=== PATIENT | female | born 1940 | race Caucasian/White ===

== ENCOUNTER 2020-02-11 12:17 | Outpatient (REF) | payer MEDICARE, SELFPAY ==
[2020-02-11 12:53] LABS: COVID-19 Test Negative (Negative)
== END 2020-02-11 12:18 | disposition home or self-care (01) ==
LOC: HO.LAB 12:17
PROVIDERS: Visit Provider Internal Medicine
DX: Z20.828 Contact with and (suspected) exposure to other viral communicable diseases (principal)
CPT/HCPCS: 87635

== ENCOUNTER 2020-11-09 06:44 | Outpatient (REF) | payer MEDICARE, SELFPAY ==
[2020-11-09 07:32] LABS: Hematocrit 37.5 % (37-47); Hemoglobin 12.3 g/dl (12.0-16.0); Mean Corpuscular HGB Conc 32.8 g/dl (31.0-35.0); Mean Corpuscular Hemoglobin 30.8 pg (27.0-33.0); Mean Corpuscular Volume 93.8 fL (80-98); Mean Platelet Volume 10.8 fL (9.4-12.3); Platelet Count 246 X10*3/uL (160-400); Red Cell Distribution Width 12.7 % (11.0-16.0)
[2020-11-09 07:40] LABS: Estimated Average Glucose 108 mg/dL; Hemoglobin A1c % 5.4 %
[2020-11-09 07:59] LABS: Alanine Aminotransferase 16 U/L (0-31); Albumin Level 4.3 g/dL (3.5-5.0); Alkaline Phosphatase 53 U/L (39-117); Anion Gap 14 (12-20); Aspartate Amino Transferase 18 U/L (5-31); Bilirubin Total 0.6 mg/dL (0.0-1.0); Blood Urea Nitrogen 13 mg/dL (9-16); Calcium 9.9 mg/dL (8.4-10.2); Carbon Dioxide 24 mmol/L (22-29); Chloride 108 mmol/L (96-108); Cholesterol 175 mg/dL; Estimated Glomerular Filt Rate > 60; Glucose Fasting 100 mg/dL (60-99); HDL Cholesterol 41 mg/dL; LDL Cholesterol Calculated 94 mg/dl; Sodium 142 mmol/L (135-145); Total Protein 7.3 g/dL (6.5-8.0); Triglycerides 204 mg/dL
[2020-11-09 08:21] LABS: TSH reflex Free T4 4.74 uIU/mL (0.32-4.0)
[2020-11-09 09:11] LABS: Free T4 (Free Thyroxine) 0.83 ng/dL (0.71-1.85)
== END 2020-11-09 06:45 | disposition home or self-care (01) ==
LOC: HO.LAB 06:44
PROVIDERS: Visit Provider Physician Assistant
DX: I10 Essential (primary) hypertension (principal); E78.2 Mixed hyperlipidemia
CPT/HCPCS: 36415; 80053; 80061; 83036; 84439; 84443; 85027

== ENCOUNTER 2021-08-11 10:30 | Emergency (ER) | payer MEDICARE, SELFPAY ==
--- NOTE | ~2021-08-11 | CT_ITS ---
EXAMINATION: CT BRAIN. CHEST. CLINICAL INFORMATION: Dizziness. COMPARISON: None TECHNIQUE: 5 mm thin axial and reformatted 2 mm thin sagittal coronal images of brain were obtained. DLP [id number]. Chest one view. FINDINGS: CHEST: The lungs are well-expanded and clear of acute process. Heart size and pulmonary vascularity is normal. No gross bony abnormality seen. BRAIN: There is no acute intra-axial, extra-axial bleed, masses or midline shift. There is no acute infarction evolution. The lateral ventricles are symmetrical in size and configuration without enlargement. The lewis to white matter differentiation is maintained normal. Bone windows reveal no calvarial abnormality. There is no scalp soft tissue abnormality. Bilateral paranasal sinuses and mastoid air cells are well-aerated. CT/CT head/brain wo con IMPRESSION: Unremarkable chest exam. No acute intracranial process seen.
[2021-08-11 10:38] VITALS: BP 139/64; PULSE 71; RESP 20; TEMP 36.7; O2SAT 99; BMI 26.8
--- NOTE | 2021-08-11 10:43 | ECG_ITS ---
Test Reason : dizziness Blood Pressure : / mmHG Vent. Rate : 065 BPM Atrial Rate : 065 BPM P-R Int : 170 ms QRS Dur : 078 ms QT Int : 434 ms P-R-T Axes : 055 -07 -09 degrees QTc Int : 451 ms Normal sinus rhythm Minimal voltage criteria for LVH, may be normal variant ( R in aVL ) Borderline ECG No previous ECGs available Referred By: Taco Moura Electronically Signed By:James Gasca
[2021-08-11 10:52] VITALS: BP 142/82; PULSE 68; RESP 16; O2SAT 97
[2021-08-11 11:26] LABS: MANUAL DIFF FLAG NO
[2021-08-11 11:30] LABS: Basophils Absolute Auto 0.1 X10*3/uL (0.0-0.2); Basophils Percent Auto 1.2 % (0-2); Eosinophils Absolute Auto 0.2 X10*3/uL (0.0-0.4); Eosinophils Percent Auto 2.2 % (0-4); Hematocrit 37.5 % (37.0-47.0); Hemoglobin 12.4 g/dl (12.0-16.0); Imm Gran Abs Auto 0.02 X10*3/uL (0.00-0.03); Imm Gran Pct Auto 0.3 % (0.0-0.4); Lymphocytes Absolute Auto 1.9 X10*3/uL (1.2-4.9); Mean Corpuscular HGB Conc 33.1 g/dl (31.0-35.0); Mean Corpuscular Hemoglobin 30.7 pg (27.0-33.0); Mean Corpuscular Volume 92.8 fL (80.0-98.0); Mean Platelet Volume 10.6 fL (9.4-12.3); Monocytes Absolute Auto 0.7 X10*3/uL (0.1-1.2); Monocytes Percent Auto 8.5 % (2-11); Neutrophils Percent Auto 63.8 % (45-73); Platelet Count 246 X10*3/uL (160-400); Red Blood Count 4.04 X10*6/uL (4.20-5.50); Red Cell Distribution Width 12.6 % (11.0-16.0); White Blood Count 7.8 X10*3/uL (4.8-10.8)
--- NOTE | 2021-08-11 11:45 | ED_ITS ---
HPI - Dizziness General Chief Complaint: Dizziness Stated Complaint: DIZZY SPELLS THIS AM Time Seen by Provider: 08/11/21 10:43 Source: patient and EMS Mode of arrival: EMS History of Present Illness HPI Narrative: 81-year-old female with a past medical history of osteopenia, HLD, HTN presenting to the ED complaining of intermittent dizzy episodes x months, worsening this morning after bending down to do laundry. Dizziness described as feeling off balance lasting a few seconds, worse with position changes/head movement. Also reports increased sinus pressure/rhinorrhea > R ear. Denies associated headache, vision changes, CP/SOB, abdominal pain, nausea/vomiting, weakness, numbness/tingling, recent illness. Denies taking anticoagulation. Denies fall/head trauma MD elicited complaint: dizziness and lightheadedness Related Data Home Medications Medication Instructions Recorded Confirmed [id number] 18 1 tab PO DAILY tab 07/13/20 05/17/21 mg-FA 400 mcg-vit K 25 mcg tablet (One-A-Day Women's Complete) Previous Rx's Medication Instructions Recorded calcium carbonate 500 mg calcium 500 mg PO DAILY 90 Days #90 tab 11/15/20 (1,250 mg) tablet (Oyster Shell Calcium) atenolol 25 mg tablet 50 mg PO DAILY #180 tab 05/26/21 simvastatin 20 mg tablet 20 mg PO BEDTIME 90 Days #90 tab 06/06/21 amlodipine 2.5 mg tablet 2.5 mg PO DAILY 90 Days #90 tab 08/03/21 lisinopril 40 mg tablet 40 mg PO DAILY 90 Days #90 tab 08/03/21 amoxicillin 875 mg-potassium 1 tab PO BID 7 Days #14 tab 08/11/21 clavulanate 125 mg tablet fluconazole 150 mg tablet 150 mg PO Q3D #2 tab 08/11/21 (Diflucan) fluticasone propionate 50 2 spray INTRANASAL DAILY #16 g 08/11/21 mcg/actuation nasal spray,suspension (Flonase Allergy Relief) meclizine 25 mg tablet 25 mg PO TID PRN #14 tab 08/11/21 Allergies Allergy/AdvReac Type Severity Reaction Status Date / Time sulfacetamide Allergy Mild Hives Verified 05/17/21 08:26 Sulfacetamide Sod-Pred Allergy Intermediate Unknown Uncoded 05/17/21 08:26 Review of Systems Review of Systems: Constitutional: No Fever, No Chills, No Fatigue, No Malaise ENT/Mouth: No Ear Pain, + Nasal Congestion, No sore throat, + Sinus pressure, No Swallowing Difficulty Eyes: No Eye Pain, No Swelling, No Redness, No Vision Changes Cardiovascular: No Chest Pain, No SOB, No Dyspnea on Exertion, No Orthopnea, No Edema, No Palpitations Respiratory: No Cough, No Sputum, No Wheezing, No Smoke Exposure, No Dyspnea Gastrointestinal: No Nausea, No Vomiting, No Diarrhea, No Constipation, No Abdominal pain Genitourinary: No Dysuria, No Urinary Frequency, No Hematuria, No Urgency, No Flank Pain Musculoskeletal: No joint pain, No Myalgias, No Joint Swelling Skin: No Skin Lesions, No rash Neuro: No Weakness, No Numbness, No Paresthesias, No Loss of Consciousness, + Dizziness, No Headache Yes all other systems are reviewed and are negative Neurologic: Denies Abnormal speech present [facility] Past Medical History Attestation statement: The following information was validated with the patient. Surgical History History of cholecystectomy Family History Family History Mother No problems noted. Father No problems noted. Social History Social History Housing: House Alcohol intake: current Alcohol intake frequency: 0-2 drinks per day Patient Tobacco Use Status: Never used Tobacco Tobacco use type: Cigarette e-Cigarette/Vaping Use: Never Used Second Hand Smoke Exposure: No Advance Directives: No Advance Directives Information Provided: No Current occupational status: retired Physical Exam Vital Signs: Vital Signs: Last Vital Signs Temp 97.9 F 08/11/21 14:14 Pulse 61 08/11/21 14:14 Resp 20 08/11/21 14:14 BP 146/69 H 08/11/21 14:14 Pulse Ox 99 08/11/21 14:14 BMI result Body Mass Index 26.8 Const: General: cooperative, healthy appearing, no acute distress, well developed, alert and awake Orientation/consciousness: patient oriented x3 Limitations: no limitations HEENT: Head: Yes normal to inspection and Yes atraumatic Ears: hearing grossly normal bilaterally, TM normal on the left, mastoids normal and TM abnormal with fluid behind the TM on the right General nose exam: Normal external nose present Face and sinus: Yes normal facial exam Mouth: Normal oral and palatal mucosa present Throat: Yes posterior oropharynx normal, Yes tonsils normal and Yes uvula midline Eyes: General: appearance normal, both eyes and all related structures Sclerae: sclerae normal Corneas: corneas normal Pupils: Equal, round and reactive pupils present EOM: EOMs intact bilaterally Neck: Neck: Yes normal visual inspection and Yes no meningeal signs Resp: Effort & Inspection: normal respiratory effort and no respiratory distress Auscultation: clear to auscultation bilaterally, no rales, no rhonchi and no wheezes Cardio: Rate: regular rate Heart sounds: S1 normal heart sound present and S2 normal heart sound present GI: Inspection: Yes normal to inspection Palpation (GI): Soft to palpation, nontender and no guarding Skin: Rashes: no rashes Wounds: no wounds Neuro: General: patient oriented x3, gait normal, tone normal, moves all extremities, no meningeal signs, no focal motor deficits and CN's II-XI intact bilaterally Cranial nerves: Yes CN's II-XII intact bilaterally, Yes Equal, round and reactive pupils present, Yes Bilaterally intact EOM present, Yes Nystagmus not present and Yes Normal facial strength present Cognition (Ne uro): normal cognition Speech: No Abnormal speech present Gait exam (Neuro): Normal gait present Motor exam (neuro): 5/5 motor strength present throughout, Pronator motor function not present and no tremor noted Coordination: [id number] test normal Romberg Test: Negative Extrem: General: Yes normal to inspection and Yes no pedal edema Course Course Course Narrative: -1215--no leukocytosis. Initial troponin negative > will obtain 3 hour repeat. BNP and lipase mildly elevated -COVID-19 and influenza negative XR chest 1V & CT head/brain wo con IMPRESSION: Unremarkable chest exam. No acute intracranial process seen.? -orthostatic vital signs negative -1243--on re-evaluation patient reports symptomatic improvement. Reports increasing anxiety related to symptoms/generalized x months. Will give 0.5 mg of Ativan for both anxiolytic and dizziness -1455--repeat troponin negative. Results discussed with patient and family at bedside including worrisome signs and symptoms and strict return precautions and needed close follow-up with PCP. She verbalized understanding and feels safe for discharge home MDM - Dizziness MDM Narrative Medical decision making narrative: 81-year-old female with a past medical history of osteopenia, HLD, HTN presenting to the ED complaining of intermittent dizzy episodes times months, worsening this morning after bending down to do laundry. On exam vital signs stable, NAD/nontoxic appearing, no focal neuro deficits, ambulating with steady gait/no ataxia, lungs CTA, fluid behind right TM. Concern for BPPV vs orthostatic hypotension vs acute/chronic ear effusion causing sx vs metabolic abnormalities including dehydration vs viral illness. Lower concern for ACS/PE. Symptoms atypical for CVA/TIA Plan: EKG, labs, UA, CXR, head CT, IVF, orthostatics, re-evaluate Differential Diagnosis Differential diagnosis: Likely benign paroxysmal positional vertigo and orthostatic hypotension Medical Records Attestation: I reviewed the patient's medical records. Lab Data Attestation: I reviewed the patient's lab results. Result diagrams: 08/11/21 11:11 08/11/21 11:11 Labs: Lab Results 08/11/21 08/11/21 08/11/21 Range/Units 11:11 11:11 11:11 WBC 7.8 (4.8-10.8) X10*3/uL RBC 4.04 L (4.20-5.50) X10*6/uL Hgb 12.4 (12.0-16.0) g/dl Hct 37.5 (37.0-47.0) % MCV 92.8 (80.0-98.0) fL MCH 30.7 (27.0-33.0) pg MCHC 33.1 (31.0-35.0) g/dl RDW 12.6 (11.0-16.0) % Plt Count 246 (160-400) X10*3/uL MPV 10.6 (9.4-12.3) fL Immature Gran % (Auto) 0.3 (0.0-0.4) % Neut % (Auto) 63.8 (45-73) % Lymph % (Auto) 24.0 (20-40) % [place] % (Auto) 8.5 (2-11) % Eos % (Auto) 2.2 (0-4) % Baso % (Auto) 1.2 (0-2) % Lymph # (Auto) 1.9 (1.2-4.9) X10*3/uL [place] # (Auto) 0.7 (0.1-1.2) X10*3/uL Eos # (Auto) 0.2 (0.0-0.4) X10*3/uL Baso # (Auto) 0.1 (0.0-0.2) X10*3/uL Abs Immat Gran (auto) 0.02 (0.00-0.03) X10*3/uL Absolute Neuts (auto) 5.0 (2.0-8.3) x10*3/uL Absolute Nucleated RBC 0.000 (0.0-0.012) X10*3/uL Nucleated RBC % (auto) 0.0 (0.0-0.2) /100WBC Sodium 142 (135-145) mmol/L Potassium 4.2 (3.3-5.1) mmol/L Chloride 109 H (96-108) mmol/L Carbon Dioxide 26 (22-29) mmol/L Anion Gap 11 L (12-20) BUN 16 (9-16) mg/dL Creatinine 0.77 (0.5-1.4) mg/dL Estim Creat Clear Calc 49.2 Estimated GFR > 60 Random Glucose 114 (60-115) mg/dL Calcium 9.6 (8.4-10.2) mg/dL Magnesium 2.1 (1.6-2.6) mg/dL Total Bilirubin 0.5 (0.0-1.0) mg/dL Direct Bilirubin < 0.2 (0.0-0.5) mg/dL AST 19 (5-31) U/L ALT 17 (0-31) U/L Alkaline Phosphatase 53 (39-117) U/L Troponin I High Sens < 3.5 (<3.5-17.0) ng/L B-Natriuretic Peptide (<100) pg/mL Total Protein 7.1 (6.5-8.0) g/dL Albumin 4.1 (3.5-5.0) g/dL Lipase 85 H (8-78) U/L Urine Color Urine Appearance Urine pH (5.0-8.0) Ur Specific [place] (1.005-1.025) Urine Protein (NEG-TRACE) MG/DL Urine Glucose (UA) (NEG) MG/DL Urine Ketones (NEG) MG/DL Urine Blood (NEG) Urine Nitrite (NEG) Ur Leukocyte Esterase (NEG) Urine RBC (0) /HPF Urine WBC (0-4) /HPF Ur Squamous Epith Cells /LPF Urine Bacteria /LPF COVID-19 ([facility]) (Negative) COVID-19 Clin Com Influenza Type A (ONIEL) (Negative) Influenza Type B ([facility]IEL) (Negative) Influenza A & B Note 08/11/21 08/11/21 08/11/21 Range/Units 11:11 11:27 11:27 WBC (4.8-10.8) X10*3/uL RBC (4.20-5.50) X10*6/uL Hgb (12.0-16.0) g/dl Hct (37.0-47.0) % MCV (80.0-98.0) fL MCH (27.0-33.0) pg MCHC (31.0-35.0) g/dl RDW (11.0-16.0) % Plt Count (160-400) X10*3/uL MPV (9.4-12.3) fL Immature Gran % (Auto) (0.0-0.4) % Neut % (Auto) (45-73) % Lymph % (Auto) (20-40) % [place] % (Auto) (2-11) % Eos % (Auto) (0-4) % Baso % (Auto) (0-2) % Lymph # (Auto) (1.2-4.9) X10*3/uL [place] # (Auto) (0.1-1.2) X10*3/uL Eos # (Auto) (0.0-0.4) X10*3/uL Baso # (Auto) (0.0-0.2) X10*3/uL Abs Immat Gran (auto) (0.00-0.03) X10*3/uL Absolute Neuts (auto) (2.0-8.3) x10*3/uL Absolute Nucleated RBC (0.0-0.012) X10*3/uL Nucleated RBC % (auto) (0.0-0.2) /100WBC Sodium (135-145) mmol/L Potassium (3.3-5.1) mmol/L Chloride (96-108) mmol/L Carbon Dioxide (22-29) mmol/L Anion Gap (12-20) BUN (9-16) mg/dL Creatinine (0.5-1.4) mg/dL Estim Creat Clear Calc Estimated GFR Random Glucose (60-115) mg/dL Calcium (8.4-10.2) mg/dL Magnesium (1.6-2.6) mg/dL Total Bilirubin (0.0-1.0) mg/dL Direct Bilirubin (0.0-0.5) mg/dL AST (5-31) U/L ALT (0-31) U/L Alkaline Phosphatase (39-117) U/L Troponin I High Sens (<3.5-17.0) ng/L B-Natriuretic Peptide 127 H (<100) pg/mL Total Protein (6.5-8.0) g/dL Albumin (3.5-5.0) g/dL Lipase (8-78) U/L Urine Color Urine Appearance Urine pH (5.0-8.0) Ur Specific [place] (1.005-1.025) Urine Protein (NEG-TRACE) MG/DL Urine Glucose (UA) (NEG) MG/DL Urine Ketones (NEG) MG/DL Urine Blood (NEG) Urine Nitrite (NEG) Ur Leukocyte Esterase (NEG) Urine RBC (0) /HPF Urine WBC (0-4) /HPF Ur Squamous Epith Cells /LPF Urine Bacteria /LPF COVID-19 ([facility]) Negative (Negative) COVID-19 Clin Com See Note Influenza Type A ([facility]IEL) Negative (Negative) Influenza Type B ([facility]) Negative (Negative) Influenza A & B Note See Note 08/11/21 08/11/21 Range/Units 13:27 14:12 WBC (4.8-10.8) X10*3/uL RBC (4.20-5.50) X10*6/uL Hgb (12.0-16.0) g/dl Hct (37.0-47.0) % MCV (80.0-98.0) fL MCH (27.0-33.0) pg MCHC (31.0-35.0) g/dl RDW (11.0-16.0) % Plt Count (160-400) X10*3/uL MPV (9.4-12.3) fL Immature Gran % (Auto) (0.0-0.4) % Neut % (Auto) (45-73) % Lymph % (Auto) (20-40) % [place] % (Auto) (2-11) % Eos % (Auto) (0-4) % Baso % (Auto) (0-2) % Lymph # (Auto) (1.2-4.9) X10*3/uL [place] # (Auto) (0.1-1.2) X10*3/uL Eos # (Auto) (0.0-0.4) X10*3/uL Baso # (Auto) (0.0-0.2) X10*3/uL Abs Immat Gran (auto) (0.00-0.03) X10*3/uL Absolute Neuts (auto) (2.0-8.3) x10*3/uL Absolute Nucleated RBC (0.0-0.012) X10*3/uL Nucleated RBC % (auto) (0.0-0.2) /100WBC Sodium (135-145) mmol/L Potassium (3.3-5.1) mmol/L Chloride (96-108) mmol/L Carbon Dioxide (22-29) mmol/L Anion Gap (12-20) BUN (9-16) mg/dL Creatinine (0.5-1.4) mg/dL Estim Creat Clear Calc Estimated GFR Random Glucose (60-115) mg/dL Calcium (8.4-10.2) mg/dL Magnesium (1.6-2.6) mg/dL Total Bilirubin (0.0-1.0) mg/dL Direct Bilirubin (0.0-0.5) mg/dL AST (5-31) U/L ALT (0-31) U/L Alkaline Phosphatase (39-117) U/L Troponin I High Sens < 3.5 (<3.5-17.0) ng/L B-Natriuretic Peptide (<100) pg/mL Total Protein (6.5-8.0) g/dL Albumin (3.5-5.0) g/dL Lipase (8-78) U/L Urine Color YELLOW Urine Appearance HAZY Urine pH 7.0 (5.0-8.0) Ur Specific [place] 1.010 (1.005-1.025) Urine Protein NEG (NEG-TRACE) MG/DL Urine Glucose (UA) NEG (NEG) MG/DL Urine Ketones NEG (NEG) MG/DL Urine Blood TRACE (NEG) Urine Nitrite NEG (NEG) Ur Leukocyte Esterase 1+ H (NEG) Urine RBC 1-4 (0) /HPF Urine WBC 1-4 (0-4) /HPF Ur Squamous Epith Cells 1+ /LPF Urine Bacteria TRACE /LPF COVID-19 ([facility]) (Negative) COVID-19 Clin Com Influenza Type A ([facility]IEL) (Negative) Influenza Type B ([facility]EL) (Negative) Influenza A & B Note Discharge Plan Discharge Clinical Impression: Benign paroxysmal positional vertigo of right ear, Middle ear effusion Patient Disposition: Home, Self-Care Instructions: Ear Infection (ED), Benign Paroxysmal Positional Vertigo (ED) Additional Instructions: Your blood work and imaging studies were reassuring today in the emergency department You have fluid in her right ear, Augmentin is an antibiotic please take as prescribed. In addition Flonase will help drain out her sinuses. Meclizine will help with dizziness, take as needed Diflucan is treatment for yeast infection, take if you develop yeast infection symptoms Please follow-up with her primary care doctor. If symptoms recur, become more constant/persist or worsening, headache, weakness, chest pain or shortness of breath please return to the ED Prescriptions: New amoxicillin-pot clavulanate 875-125 mg tablet 1 tab PO BID 7 Days Qty: 14 0RF fluconazole [Diflucan] 150 mg tablet 150 mg PO Q3D Qty: 2 0RF Rx Instructions: may repeat second dose 72 hrs after first dose if symptoms persist meclizine 25 mg tablet 25 mg PO TID PRN (Reason: dizziness) Qty: 14 0RF fluticasone propionate [Flonase Allergy Relief] 50 mcg/actuation spray,suspension 2 spray intranasal DAILY Qty: 16 0RF Rx Instructions: administer into each nostril No Action atenolol 25 mg tablet 50 mg PO DAILY Qty: 180 1RF simvastatin 20 mg tablet 20 mg PO BEDTIME 90 Days Qty: 90 1RF lisinopril 40 mg tablet 40 mg PO DAILY 90 Days Qty: 90 1RF amlodipine 2.5 mg tablet 2.5 mg PO DAILY 90 Days Qty: 90 1RF One-A-Day Women's Complete 18 mg-400 mcg- 25 mcg tablet 1 tab PO DAILY 0RF calcium carbonate [Oyster Shell Calcium] 500 mg calcium (1,250 mg) tablet 500 mg PO DAILY 90 Days Qty: 90 2RF Referrals: Haseeb Sanchez PA-C [Primary Care Provider] - 5 days
[2021-08-11 11:47] LABS: Alanine Aminotransferase 17 U/L (0-31); Albumin Level 4.1 g/dL (3.5-5.0); Alkaline Phosphatase 53 U/L (39-117); Anion Gap 11 (12-20); Aspartate Amino Transferase 19 U/L (5-31); Bilirubin Direct < 0.2 mg/dL (0.0-0.5); Bilirubin Total 0.5 mg/dL (0.0-1.0); Blood Urea Nitrogen 16 mg/dL (9-16); Calcium 9.6 mg/dL (8.4-10.2); Carbon Dioxide 26 mmol/L (22-29); Chloride 109 mmol/L (96-108); Creatinine Clr Calc Pharmacy 49.2; Estimated Glomerular Filt Rate > 60; Glucose Random 114 mg/dL (60-115); Lipase 85 U/L (8-78); Magnesium 2.1 mg/dL (1.6-2.6); Potassium 4.2 mmol/L (3.3-5.1); Sodium 142 mmol/L (135-145); Total Protein 7.1 g/dL (6.5-8.0)
[2021-08-11 11:49] LABS: B Type Natriuretic Peptide 127 pg/mL (<100)
[2021-08-11 11:53] LABS: Troponin-I High Sensitivity < 3.5 ng/L (<3.5-17.0)
[2021-08-11 11:55] LABS: IDNOW Serial# 08D9AD1C; Influenza A Negative (Negative); Influenza B2 Negative (Negative)
[2021-08-11] MEDS: 0.9 % Sodium Chloride 1,000 ML 999 ML IV (11:57)
[2021-08-11 11:58] LABS: COVID-19 Test Negative (Negative)
[2021-08-11 12:04] VITALS: BP 142/67; BP 155/71; PULSE 59; PULSE 68
[2021-08-11 12:07] VITALS: BP 152/98; PULSE 67
[2021-08-11 12:11] VITALS: BP 170/74; PULSE 65; RESP 17; TEMP 36.7; O2SAT 99
[2021-08-11] MEDS: Meclizine HCl 25 MG TABLET PO (12:16)
[2021-08-11] MEDS: LORazepam 0.5 MG TABLET PO (13:14)
[2021-08-11 13:55] LABS: Appearance Urine HAZY; Color Urine YELLOW; Glucose Urine UA NEG (NEG); Leukocyte Esterase Urine 1+ (NEG); Nitrite Urine NEG (NEG); UACC Culture Trigger YES; Urine Blood TRACE (NEG); Urine Ketones NEG (NEG); Urine Protein NEG (NEG-TRACE)
[2021-08-11 14:14] VITALS: BP 146/69; PULSE 61; RESP 20; TEMP 36.6; O2SAT 99
[2021-08-11 14:40] LABS: Troponin-I High Sensitivity < 3.5 ng/L (<3.5-17.0)
[2021-08-11 14:43] LABS: Squamous Epithelial Cell Urine 1+ /LPF
[2021-08-11 14:44] LABS: Bacteria Urine TRACE /LPF
== END 2021-08-11 15:15 | disposition home or self-care (01) ==
PROVIDERS: Physician Assistant; Emergency Provider Emergency Medicine; PCP Physician Assistant
DX: H81.11 Benign paroxysmal vertigo, right ear (principal); I10 Essential (primary) hypertension; F17.210 Nicotine dependence, cigarettes, uncomplicated; Z71.6 Tobacco abuse counseling; Z20.822 Contact with and (suspected) exposure to COVID-19; Z79.899 Other long term (current) drug therapy
CPT/HCPCS: 36415; 70450; 71045; 80048; 80076; 81001; 81003; 83690; 83735; 83880; 84484; 85025; 87086; 87502; 87635; 93005; 96360; 99284

== ENCOUNTER 2022-02-27 08:05 | Outpatient (REF) | payer MEDICARE, SELFPAY ==
[2022-02-27 08:34] LABS: Hematocrit 36.6 % (37.0-47.0); Hemoglobin 12.3 g/dl (12.0-16.0); Mean Corpuscular HGB Conc 33.6 g/dl (31.0-35.0); Mean Corpuscular Hemoglobin 30.8 pg (27.0-33.0); Mean Corpuscular Volume 91.5 fL (80.0-98.0); Mean Platelet Volume 10.2 fL (9.4-12.3); Platelet Count 278 X10*3/uL (160-400); Red Cell Distribution Width 12.7 % (11.0-16.0); White Blood Count 7.5 X10*3/uL (4.8-10.8)
[2022-02-27 08:51] LABS: Estimated Average Glucose 111 mg/dL; Hemoglobin A1c % 5.5 %
[2022-02-27 08:58] LABS: Alanine Aminotransferase 17 U/L (0-31); Albumin Level 4.3 g/dL (3.5-5.0); Alkaline Phosphatase 57 U/L (39-117); Anion Gap 15 (12-20); Aspartate Amino Transferase 19 U/L (5-31); Bilirubin Total 0.5 mg/dL (0.0-1.0); Blood Urea Nitrogen 11 mg/dL (9-16); Calcium 9.4 mg/dL (8.4-10.2); Carbon Dioxide 25 mmol/L (22-29); Chloride 106 mmol/L (96-108); Cholesterol 155 mg/dL; Estimated Glomerular Filt Rate > 60; Glucose Fasting 106 mg/dL (60-99); HDL Cholesterol 40 mg/dL; LDL Cholesterol Calculated 85 mg/dl; Potassium 3.9 mmol/L (3.3-5.1); Sodium 142 mmol/L (135-145); Total Protein 7.3 g/dL (6.5-8.0); Triglycerides 153 mg/dL
[2022-02-27 09:22] LABS: TSH reflex Free T4 4.34 uIU/mL (0.32-4.0)
[2022-02-27 10:30] LABS: Free T4 (Free Thyroxine) 0.94 ng/dL (0.71-1.85)
== END 2022-02-27 08:06 | disposition home or self-care (01) ==
LOC: HO.LAB 08:05
PROVIDERS: PCP Physician Assistant; Visit Provider Physician Assistant
DX: E78.2 Mixed hyperlipidemia (principal); I10 Essential (primary) hypertension
CPT/HCPCS: 36415; 80053; 80061; 83036; 84439; 84443; 85027

== ENCOUNTER 2022-09-18 06:41 | Outpatient (REF) | payer MEDICARE, SELFPAY ==
[2022-09-18 07:29] LABS: Hematocrit 38.8 % (37.0-47.0); Hemoglobin 12.6 g/dl (12.0-16.0); Mean Corpuscular HGB Conc 32.5 g/dl (31.0-35.0); Mean Corpuscular Hemoglobin 30.1 pg (27.0-33.0); Mean Corpuscular Volume 92.8 fL (80.0-98.0); Mean Platelet Volume 10.8 fL (9.4-12.3); Platelet Count 278 X10*3/uL (160-400); Red Blood Count 4.18 X10*6/uL (4.20-5.50); White Blood Count 8.3 X10*3/uL (4.8-10.8)
[2022-09-18 08:04] LABS: Alanine Aminotransferase 18 U/L (0-31); Albumin Level 4.3 g/dL (3.5-5.0); Alkaline Phosphatase 57 U/L (39-117); Anion Gap 13 (12-20); Aspartate Amino Transferase 18 U/L (5-31); Bilirubin Total 0.6 mg/dL (0.0-1.0); Blood Urea Nitrogen 13 mg/dL (9-16); Calcium 9.9 mg/dL (8.4-10.2); Carbon Dioxide 27 mmol/L (22-29); Chloride 107 mmol/L (96-108); Cholesterol 182 mg/dL; Estimated Glomerular Filt Rate > 60; Glucose Fasting 103 mg/dL (60-99); HDL Cholesterol 47 mg/dL; LDL Cholesterol Calculated 110 mg/dl; Potassium 4.2 mmol/L (3.3-5.1); Sodium 143 mmol/L (135-145); Total Protein 7.2 g/dL (6.5-8.0); Triglycerides 129 mg/dL
[2022-09-18 08:21] LABS: TSH reflex Free T4 5.78 uIU/mL (0.32-4.0)
== END 2022-09-18 06:42 | disposition home or self-care (01) ==
LOC: HO.LAB 06:41
PROVIDERS: PCP Physician Assistant; Visit Provider Physician Assistant
DX: I10 Essential (primary) hypertension (principal); E78.2 Mixed hyperlipidemia; R79.89 Other specified abnormal findings of blood chemistry
CPT/HCPCS: 36415; 80053; 80061; 84439; 84443; 85027

== ENCOUNTER 2023-02-22 07:08 | Outpatient (REF) | payer MEDICARE, SELFPAY ==
[2023-02-22 07:52] LABS: Hematocrit 38.8 % (37.0-47.0); Mean Corpuscular HGB Conc 33.5 g/dl (31.0-35.0); Mean Corpuscular Hemoglobin 30.7 pg (27.0-33.0); Mean Corpuscular Volume 91.7 fL (80.0-98.0); Mean Platelet Volume 10.5 fL (9.4-12.3); Platelet Count 267 X10*3/uL (160-400); Red Blood Count 4.23 X10*6/uL (4.20-5.50); Red Cell Distribution Width 12.6 % (11.0-16.0); White Blood Count 8.2 X10*3/uL (4.8-10.8)
[2023-02-22 08:24] LABS: Alanine Aminotransferase 15 U/L (0-31); Albumin Level 4.4 g/dL (3.5-5.0); Alkaline Phosphatase 58 U/L (39-117); Anion Gap 13 (12-20); Aspartate Amino Transferase 19 U/L (5-31); Bilirubin Total 0.6 mg/dL (0.0-1.0); Blood Urea Nitrogen 14 mg/dL (9-16); Calcium 9.9 mg/dL (8.4-10.2); Carbon Dioxide 25 mmol/L (22-29); Chloride 109 mmol/L (96-108); Cholesterol 171 mg/dL (<200); Estimated Glomerular Filt Rate > 60; Glucose Fasting 101 mg/dL (60-99); HDL Cholesterol 44 mg/dL (>40); LDL Cholesterol Calculated 101 mg/dL (<100); Potassium 3.7 mmol/L (3.3-5.1); Sodium 143 mmol/L (135-145); Total Protein 7.8 g/dL (6.5-8.0); Triglycerides 133 mg/dL (<150)
[2023-02-22 08:31] LABS: TSH reflex Free T4 4.54 uIU/mL (0.32-4.0)
[2023-02-22 09:21] LABS: Free T4 (Free Thyroxine) 0.85 ng/dL (0.71-1.85)
== END 2023-02-22 07:09 | disposition home or self-care (01) ==
LOC: HO.LAB 07:08
PROVIDERS: PCP Physician Assistant; Visit Provider Physician Assistant
DX: E03.9 Hypothyroidism, unspecified (principal); I10 Essential (primary) hypertension; E78.2 Mixed hyperlipidemia
CPT/HCPCS: 36415; 80053; 80061; 84439; 84443; 85027

== ENCOUNTER 2023-02-27 08:23 | Outpatient (AMB) | payer MEDICARE, SELFPAY ==
[2023-02-27 08:26] VITALS: BP 138/72; PULSE 73; O2SAT 97; BMI 28.3
--- NOTE | 2023-02-27 08:26 | A.OFFPC_ITS ---
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 Accompanied by: Self / Same As Patient Allergies sulfacetamide Allergy (Mild, Verified 02/27/23 08:33) Hives meclizine Adverse Reaction (Intermediate, Verified 02/27/23 08:33) Dizziness Sulfacetamide Sod-Pred Allergy (Intermediate, Uncoded 09/21/22 08:33) Unknown Medication List - Last Reconciled 02/27/23 by Haseeb Sanchez PA-C amlodipine 2.5 mg PO DAILY 90 days atenolol 50 mg (2 x 25 mg) PO DAILY levothyroxine 25 mcg PO DAILY 90 days lisinopril 40 mg PO DAILY 90 days kn-lrkpfxa-wxm-iron fm-FA-vitK 18 mg-400 mcg- 25 mcg (One-A-Day Women's Complete(with vit K)) 1 tab PO DAILY simvastatin 20 mg PO BEDTIME 90 days Tobacco use date assessed: 05/18/22 Fall risk assessment: No Falls in past year Last assessed Fall Risk: 02/27/23 Dental Screening Dental Screen Date: 02/27/23 Did you have a dental visit in the last 12 months?: No Did you have a dental problem in the last 6 months where you did not have access to dental care?: No Was dental information given to patient?: Patient declined HPI f/u HTN HPI Details Patient is an 83 -year-old female? here today for follow-up visit. Patient has a past medical history significant for hyperlipidemia, hypertension.? . .. Elevated TSH: Patient's TSH continues to be elevated though improved from previous, she has started low-dose levothyroxine. She would like to stay on current dose. .. Vertigo: Reports having intermittent dizziness associated with head movements and being and high stimulating areas. Will her symptoms most consistent with a benign positional vertigo. Will likely benefit from vestibular therapy and patient agrees. .. Hypertension:? Has been stable on her current amlodipine and lisinopril.? Reports blood pressures at home have been stable. .. Hyperlipidemia:? Has been stable with simvastatin 20 mg without side. Patient's total cholesterol has improved as well. Laboratory Tests 09/18/22 02/22/23 06:51 07:18 RBC 4.23 Fasting Glucose 101 H LDL Cholesterol, C alc 101 H TSH 5.78 H 4.54 H PFSH Surgical History History of right cataract surgery History of left cataract surgery History of cholecystectomy Family History Mother No problems noted. Father No problems noted. Social History Housing: House Alcohol intake: current Alcohol intake frequency: 0-2 drinks per day Patient Tobacco Use Status: Never used Tobacco Tobacco use type: Cigarette e-Cigarette/Vaping Use: Never Used Second Hand Smoke Exposure: No service: No Current occupational status: retired Cognitive needs: No Hearing needs: No Vision needs: No Questionnaire Thrive Questionnaire Date Thrive assessed: 05/18/22 GRACIE-7 AMB Questionnaire GRACIE-7 Date GRACIE - 7 assessed: 05/18/22 Source: Developed by Drs. Roni Falcon, Stephanie Mario, Jasbir Pierre and colleagues, with an educational melissa from [employer]. Review of Systems Const Denies headache(s) Eyes Denies loss of vision ENT Reports vertigo, Denies dizziness, Denies headache(s) and Denies sore throat Card Denies chest pain, Denies leg edema and Denies lightheadedness Resp Denies cough, Denies hemoptysis and Denies wheezing GI Denies abdominal pain, Denies melena, Denies constipation, Denies diarrhea and Denies vomiting Denies urinary frequency, Denies dysuria and Denies urinary urgency Musc Denies arthralgias, Denies joint swelling, Denies numbness and Denies tingling Neuro Denies Abnormal speech present, Denies behavioral changes, Reports vertigo, Denies dizziness, Denies headache(s), Denies loss of vision, Denies memory loss, Denies numbness and Denies tingling Psych Denies anxiety, Denies behavioral changes, Denies depression, Denies memory loss and Denies panic attacks Richie/Lymph Denies easy bleeding and Denies easy bruising Aller/Immun Denies wheezing Physical exam (Primary Care) Vital Signs: Last Vital Signs Pulse 73 02/27/23 08:26 BP 138/72 02/27/23 08:26 Pulse Ox 97 02/27/23 08:26 Oxygen Delivery Method Room Air 02/27/23 08:26 BMI result Body Mass Index 28.3 Tobacco/Smoking Status: Tobacco use Status Tobacco use date assessed 05/18/22 02/27/23 08:29 Patient Tobacco Use Status Never used Tobacco 02/27/23 08:29 Tobacco use type Cigarette 02/27/23 08:29 e-Cigarette/Vaping Use Never Used 02/27/23 08:29 Thrive Assessment: Date of Thrive Assessment Date Thrive assessed 05/18/22 02/27/23 08:29 Const General: healthy appearing, no acute distress, alert and awake Nutritional Appearance: well nourished Orientation/consciousness: oriented to person, oriented to place and oriented to time HENMT Ears: TM's normal bilaterally General nose exam: Normal nasal mucous membranes and turbinates present Eyes Conjunctivae: conjunctivae normal Sclerae: sclerae normal Pupils: Equal, round and reactive pupils present Neck Neck: Yes no lymphadenopathy and Yes no JVD Thyroid: Thyroid normal Carotids: no bruits Resp Effort & Inspection: normal respiratory effort and not tachypneic Auscultation: no crackles, no rales, no rhonchi and no wheezes Cardio Rate: regular rate Rhythm: regular rhythm Heart sounds: no murmurs and normal S1 and S2 GI Palpation (GI): Soft to palpation, nontender, no hepatomegaly and no splenomegaly Auscultation: normal bowel sounds Skin General skin exam: no rashes or lesions noted and dry skin Neuro General: oriented to person, oriented to place and oriented to time Cranial nerves: Yes Equal, round and reactive pupils present Speech: No Abnormal speech present Gait exam (Neuro): Normal gait present Motor exam (neuro): no tremor noted Extrem Right upper extremity: full ROM Left upper extremity: full ROM Right lower extremity: full ROM; no edema Left lower extremity: full ROM; no edema Psych Mental Status: mental status grossly normal Speech and movement: Normal speech and movement present Affect: normal affect Attitude: cooperative Thought process: Normal thought process present Assessment and Plan Assessment & Plan (1) Hypothyroid: Code(s): E03.9 - Hypothyroidism, unspecified Qualifiers: Hypothyroidism type: acquired Qualified Code(s): E03.9 - Hypothyroidism, unspecified Plan: Patient continues to have slightly elevated TSH. Is clinically euthyroid. Will continue levothyroxine 25 mcg per (2) HTN (hypertension): Code(s): I10 - Essential (primary) hypertension Qualifiers: Hypertension type: essential hypertension Qualified Code(s): I10 - Essential (primary) hypertension Plan: Patient's blood pressure acceptable today in office. Will continue his current dose of lisinopril and atenolol. Goal blood pressure be below 140/90 (3) HLD (hyperlipidemia): Code(s): E78.5 - Hyperlipidemia, unspecified Qualifiers: Hyperlipidemia type: mixed hyperlipidemia Qualified Code(s): E78.2 - Mixed hyperlipidemia Plan: Patient's most recent lipid panel showing appropriate LDL and total cholesterol. Will continue current dose of simvastatin with goal LDL to be below 160 (4) BPPV (benign paroxysmal positional vertigo): Code(s): H81.10 - Benign paroxysmal vertigo, unspecified ear Qualifiers: Laterality: bilateral Qualified Code(s): H81.13 - Benign paroxysmal vertigo, bilateral Plan: As per HPI patient will likely benefit from vestibular therapy. Will consider brain imaging if symptoms become more evident and more frequent. Orders: Orders TSH reflex Free T4 Today E03.9 - Hypothyroidism, unspecified Comprehensive [place]. Panel Fast Today I10 - Essential (primary) hypertension PT Evaluation and Treatment Today H81.13 - Benign paroxysmal vertigo, bilateral Lipid Panel Today E78.2 - Mixed hyperlipidemia Microalbumin, Random (w Creat) Today I10 - Essential (primary) hypertension Coding Level of Care Code Est Pt Level 4 (04383) Diagnoses Acquired hypothyroidism E03.9 Hypothyroidism type: acquired Essential hypertension I10 Hypertension type: essential hypertension Mixed hyperlipidemia E78.2 Hyperlipidemia type: mixed hyperlipidemia Benign paroxysmal positional vertigo due to bilateral vestibular disorder H81.13 Laterality: bilateral
== END 2023-02-27 08:59 | disposition home or self-care (01) ==
PROVIDERS: Visit Provider Physician Assistant
DX: E03.9 Hypothyroidism, unspecified (principal); I10 Essential (primary) hypertension; E78.2 Mixed hyperlipidemia; H81.13 Benign paroxysmal vertigo, bilateral
CPT/HCPCS: 99214

== ENCOUNTER 2023-08-23 07:08 | Outpatient (REF) | payer MEDICARE, SELFPAY ==
[2023-08-23 08:32] LABS: Alanine Aminotransferase 17 U/L (0-31); Albumin Level 4.3 g/dL (3.5-5.0); Alkaline Phosphatase 60 U/L (39-117); Anion Gap 11 (12-20); Aspartate Amino Transferase 19 U/L (5-31); Bilirubin Total 0.6 mg/dL (0.0-1.0); Blood Urea Nitrogen 15 mg/dL (9-16); Calcium 9.9 mg/dL (8.4-10.2); Carbon Dioxide 29 mmol/L (22-29); Chloride 108 mmol/L (96-108); Cholesterol 158 mg/dL (<200); Estimated Glomerular Filt Rate > 60; Glucose Fasting 98 mg/dL (60-99); HDL Cholesterol 42 mg/dL (>40); LDL Cholesterol Calculated 93 mg/dL (<100); Potassium 3.8 mmol/L (3.3-5.1); Sodium 144 mmol/L (135-145); Total Protein 7.6 g/dL (6.5-8.0); Triglycerides 119 mg/dL (<150)
[2023-08-23 08:57] LABS: TSH reflex Free T4 2.72 uIU/mL (0.32-4.0)
== END 2023-08-23 07:09 | disposition home or self-care (01) ==
LOC: HO.LAB 07:08
PROVIDERS: PCP Physician Assistant; Visit Provider Physician Assistant
DX: I10 Essential (primary) hypertension (principal); E03.9 Hypothyroidism, unspecified; E78.2 Mixed hyperlipidemia
CPT/HCPCS: 36415; 80053; 80061; 84443

== ENCOUNTER 2023-08-28 10:01 | Outpatient (AMB) | payer MEDICARE, SELFPAY ==
[2023-08-28 10:15] VITALS: BP 136/80; PULSE 60; O2SAT 96; BMI 27.5
--- NOTE | 2023-08-28 10:17 | AM.OFFVISMDC ---
Intake Vital Signs 08/28/23 10:15 Height 5 ft 1 in Weight 145 lb 8 oz BMI 27.5 BP 136/80 Blood Pressure Location Lt brachial Position Sitting Pulse 60 Pulse Source Pulse Oximeter Pulse Oximetry (%) 96 Oxygen Delivery Method Room Air Intake Visit Reasons: Wellness Visit Allergies sulfacetamide Allergy (Mild, Verified 08/28/23 10:53) Hives meclizine Adverse Reaction (Intermediate, Verified 08/28/23 10:53) Dizziness Sulfacetamide Sod-Pred Allergy (Intermediate, Uncoded 09/21/22 08:33) Unknown Medication List - Last Reconciled 08/28/23 by Haseeb Sanchez PA-C amlodipine 2.5 mg PO DAILY 90 days atenolol 50 mg (2 x 25 mg) PO DAILY codeine-guaifenesin 10-100 mg/5 mL 5 mL PO Q6H PRN 5 days levothyroxine 25 mcg PO DAILY 90 days lisinopril 40 mg PO DAILY 90 days ee-gxhkcrs-bfj-iron fm-FA-vitK 18 mg-400 mcg- 25 mcg (One-A-Day Women's Complete(with vit K)) 1 tab PO DAILY simvastatin 20 mg PO BEDTIME 90 days HPI Wellness Visit HPI Details Patient is an 83 -year-old female? here today for an annual wellness visit. Patient has a past medical history significant for hyperlipidemia, hypertension.? . Today we discussed her [place] of care and end of life planning. MOLST form filled out today in office Colonoscopy-aged out Mammogram- does not receive anymore Osteopenia: Bone density done in 2016 showing T-score of -2.1- considering a repeat Vaccines: Up-to-date with COVID, flu , pneumonia and shingles. Laboratory Tests 02/22/23 08/23/23 07:18 07:26 RBC 4.23 Hgb 13.0 Creatinine 0.76 Fasting Glucose 98 Triglycerides 119 Cholesterol 158 TSH 4.54 H 2.72 HPI Comments History of Present Illness Details reviewed past medical history- yes reviewed surgical / hospitalization history- yes reviewed current medications- yes reviewed family history- yes home safety throw rugs? grab bars? raised toilet seat? working smoke detectors? activities of daily living difficulty bathing or showering? difficulty dressing? difficulty using the toilet? difficulty getting in and out of bed? difficulty walking? receives help from other person's with any of the above tasks? instrumental activities of daily living uses telephone - gets to place out of walking distance- go shopping for groceries- repairs own meals- does own minor home maintenance- does own laundry- does own housework- manages own money- currently takes medication- end of life planning discussed advanced directives- yes advanced directives on file? discussed wishes expressed in advanced directives. fall risk have you had any falls with injuries in the past year? have you had 2 or more falls in the past year? fall risk assessment: [facility] Surgical History History of right cataract surgery History of left cataract surgery History of cholecystectomy Family History Mother No problems noted. Father No problems noted. Social History Housing: House Alcohol intake: current Alcohol intake frequency: 0-2 drinks per day Patient Tobacco Use Status: Never used Tobacco Tobacco use type: Cigarette e-Cigarette/Vaping Use: Never Used Second Hand Smoke Exposure: No service: No Current occupational status: retired Cognitive needs: No Hearing needs: No Vision needs: No Questionnaire Medicare Wellness Checkup What is your age?: 80 or older What gender do you identify with?: female During the past 4 weeks, how much have you been bothered by emotional problems such as feeling anxious, depressed, irritable, sad or downhearted, and blue?: not at all During the past 4 weeks, has your physical & emotional health limited your social activities with family, friends, neighbors, or groups?: not at all During the past 4 weeks, how much bodily pain have you generally had?: very mild pain During the past 4 weeks, was someone available to help you if you needed & wanted help?: yes, as much as I wanted During the past 4 weeks, what was the hardest physical activity you could do for at least 2 minutes?: light Can you get to places out of walking distance without help? (For eg., can you travel alone on buses, taxis or drive your car?): Yes Can you go shopping for groceries or clothes without someone's help?: Yes Can you prepare your own meals?: Yes Can you do your housework without help?: Yes Because of any health problems, do you need the help of another person with your personal care needs such as eating, bathing, dressing or getting around the house?: No Can you handle your own money without help?: Yes During the past 4 weeks, how would you rate your health in general?: very good During the past 4 weeks how have things been going for you?: very well; could hardly better Are you having difficulties driving your car?: no Do you always fasten your seat belt when you are in a car?: yes, usually During past 4 weeks, have you been bothered by the following: never: Sexual problems?, Trouble eating well?, Teeth or denture problems?, Problems using the telephone? and Tiredness or fatigue? and sometimes: Falling or dizzy when standing up Have you fallen 2 or more times in the past year?: No Are you afraid of falling?: No Are you a smoker?: no During the past 4 weeks, how many drinks of wine, beer, or other alcoholic beverages did you have?: 2-5 drinks per week Do you exercise for about 20 minutes 3 or more times a week?: yes, most of the time Have you been given information to help with the following?: yes: Keeping track of your medications? and no: Hazards in your house that might hurt you? How often do you have trouble taking medicines the way you have been told to take them?: I always take medicine as prescribed How confident are you that you can control & manage most of your health problems?: very confident What is your race?: White Activity of Daily Living Bathing - sponge bath, tub bath or shower: receives no assistance (gets in/out by self, if usual bathing means Dressing - getting clothes from closets & drawers, including inner/outer garments & fasteners.: gets clothes & gets completely dressed without help Toileting - going to the 'toilet room' for urine/bowel elimination & cleaning self/arranging clothes: goes to toilet room, cleans self, arranges clothes without help Transfer: moves in & out of bed and chair without help (may use support object) Continence: controls urination/bowel movements completely by self Feeding: feeds self without help Total Score: 0 Information obtained from: patient Using telephone: independent Traveling: independent Shopping: independent Preparing meals: independent Housework: independent Taking medicine: independent Managing money: independent PHQ-9 Over the last 2 weeks, how often have you been bothered by any of the following problems? 1. Little interest or pleasure in doing things: not at all 2. Feeling down, depressed, or hopeless: not at all 3. Trouble falling or staying asleep, or sleeping too much: not at all 4. Feeling tired or having little energy: not at all 5. Poor appetite or overeating: not at all 6. Feeling bad about yourself - or that you are a failure or have let yourself or your family down: not at all 7. Trouble concentrating on things, such as reading the newspaper or watching television: not at all 8. Moving or speaking so slowly that other people could have noticed. Or the opposite - being so fidgety or restless that you have been moving around a lot more than usual: not at all 9. Thoughts that you would be better off or of hurting yourself in some way: not at all Total score: 0 Depression Screening Interpretation: Negative Depression Screening Done: Yes [id number] - PHQ-9 Billing: Yes Source: Developed by Drs. Roni Falcon, Stephanie Mario, Jasbir Pierre and colleagues, with an educational melissa from [employer]. Physical Exam Vital Signs: Last Vital Signs Pulse 60 08/28/23 10:15 BP 136/80 08/28/23 10:15 Pulse Ox 96 08/28/23 10:15 Oxygen Delivery Method Room Air 08/28/23 10:15 BMI result Body Mass Index 27.5 HEENT Other: hearing screening whisper test- pass Eyes Other: vision screening- 20 / 20 0 S, OD, OU Other: urinary incontinence? no Neuro Other: balance Romberg- normal tandem walk test- able walk-in turned test- able rise from sit to stand- within 2 seconds Assessment & Plan Assessment & Plan (1) Medicare annual wellness visit, initial: Code(s): Z00.00 - Encounter for general adult medical examination without abnormal findings Plan: As per HPI, reviewed patient's [place] of care, filled out MOLST form today in office. Considering another bone density screening. Plan As per HPI, reviewed patient's [place] of care, filled out MOLST form today in office. Considering another bone density screening. Quality Reporting (2019) Depression/Bipolar (159/160/161/177) PHQ-9: Total score: 0 Coding Level of Care Code Medicare First (G0438) Diagnoses Medicare annual wellness visit, initial Z00.00 CPT Codes Advance Care Planning - Time spent: 1-15 minutes, not on file ([id number]) Advance Care Planning Advance Care Planning discussion: Exists, not on file Date of discussion: 08/28/23 Forms completed: MOLST Time spent: 1-15 minutes, not on file Actual minutes spent: 5
== END 2023-08-28 10:54 | disposition home or self-care (01) ==
PROVIDERS: PCP Physician Assistant; Visit Provider Physician Assistant
DX: Z00.00 Encounter for general adult medical examination without abnormal findings (principal)
CPT/HCPCS: 1124F; G0438; G0439

== ENCOUNTER 2024-02-14 07:33 | Outpatient (REF) | payer MEDICARE, SELFPAY | END 2024-02-14 07:34 | disposition home or self-care (01) | LOC: HO.LAB 07:33 | PROVIDERS: PCP Physician Assistant; Visit Provider Physician Assistant | DX: Z13.89 Encounter for screening for other disorder (principal) ==

== ENCOUNTER 2024-02-18 07:06 | Outpatient (REF) | payer MEDICARE, SELFPAY ==
[2024-02-18 07:41] LABS: Hematocrit 39.1 % (37.0-47.0); Hemoglobin 12.9 g/dl (12.0-16.0); Mean Corpuscular Hemoglobin 30.9 pg (27.0-33.0); Mean Corpuscular Volume 93.8 fL (80.0-98.0); Mean Platelet Volume 10.5 fL (9.4-12.3); Platelet Count 275 X10*3/uL (160-400); Red Blood Count 4.17 X10*6/uL (4.20-5.50); Red Cell Distribution Width 12.8 % (11.0-16.0); White Blood Count 8.6 X10*3/uL (4.8-10.8)
[2024-02-18 08:17] LABS: Alanine Aminotransferase 17 U/L (0-31); Albumin Level 4.4 g/dL (3.5-5.0); Alkaline Phosphatase 67 U/L (39-117); Anion Gap 12 (12-20); Aspartate Amino Transferase 17 U/L (5-31); Bilirubin Total 0.6 mg/dL (0.0-1.0); Blood Urea Nitrogen 18 mg/dL (9-16); Calcium 10.1 mg/dL (8.4-10.2); Carbon Dioxide 27 mmol/L (22-29); Chloride 107 mmol/L (96-108); Cholesterol 163 mg/dL (<200); Estimated Glomerular Filt Rate > 60; Glucose Fasting 111 mg/dL (60-99); HDL Cholesterol 43 mg/dL (>40); LDL Cholesterol Calculated 87 mg/dL (<100); Potassium 4.1 mmol/L (3.3-5.1); Sodium 142 mmol/L (135-145); Total Protein 7.7 g/dL (6.5-8.0); Triglycerides 165 mg/dL (<150)
[2024-02-18 08:36] LABS: TSH reflex Free T4 3.61 uIU/mL (0.32-4.0)
== END 2024-02-18 07:07 | disposition home or self-care (01) ==
LOC: HO.LAB 07:06
PROVIDERS: PCP Physician Assistant; Visit Provider Physician Assistant
DX: I10 Essential (primary) hypertension (principal); E78.2 Mixed hyperlipidemia; E03.9 Hypothyroidism, unspecified
CPT/HCPCS: 36415; 80053; 80061; 84443; 85027

== ENCOUNTER 2024-02-28 09:53 | Outpatient (AMB) | payer MEDICARE, SELFPAY ==
--- NOTE | 2024-02-28 10:01 | MHC.PC.OV ---
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 Required: No Accompanied by: Self / Same As Patient Allergies sulfacetamide Allergy (Mild, Verified 02/28/24 10:11) Hives meclizine Adverse Reaction (Intermediate, Verified 02/28/24 10:11) Dizziness Sulfacetamide Sod-Pred Allergy (Intermediate, Uncoded 02/28/24 10:11) Unknown Medication List - Last Reconciled 02/28/24 by Haseeb Sanchez PA-C amlodipine 2.5 mg PO DAILY 90 days atenolol 50 mg (2 x 25 mg) PO DAILY codeine-guaifenesin 10-100 mg/5 mL 5 mL PO Q6H PRN 5 days levothyroxine 25 mcg PO DAILY 90 days lisinopril 40 mg PO DAILY 90 days aw-ivwqfkh-dzw-iron fm-FA-vitK 18 mg-400 mcg- 25 mcg (One-A-Day Women's Complete(with vit K)) 1 tab PO DAILY simvastatin 20 mg PO BEDTIME 90 days Tobacco use date assessed: 02/28/24 Fall risk assessment: No Falls in past year Last assessed Fall Risk: 02/28/24 Dental Screening Dental Screen Date: 02/28/24 Did you have a dental visit in the last 12 months?: No Did you have a dental problem in the last 6 months where you did not have access to dental care?: No Was dental information given to patient?: Patient has dentist HPI f/u HLD HPI Details Patient is an 84 -year-old female? here today for follow-up visit. Patient has a past medical history significant for hyperlipidemia, hypertension.? UNFORTUNATELY PATIENT HAS BEEN RECENTLY . .. Hypothyroidism: Most recent TSH stable, she continues on levothyroxine 25 mcg. .. Vertigo: Reports having intermittent dizziness associated with head movements and being and high stimulating areas. Will her symptoms most consistent with a benign positional vertigo. Will likely benefit from vestibular therapy and patient agrees. .. Hypertension: Patient's blood pressure slightly elevated today in office.? She continues on current amlodipine and lisinopril dosage as.? Patient does not regularly check her blood pressure at home. She otherwise feels well .. Hyperlipidemia:? Has been stable with simvastatin 20 mg without side effects. Patient's total cholesterol has improved as well. Labs: Reviewed most recent labs with patient and noted a slightly elevated fasting blood sugar at 111 Laboratory Tests 02/18/24 07:16 RBC 4.17 L Hgb 12.9 Creatinine 0.89 Fasting Glucose 111 H Triglycerides 165 H Cholesterol 163 TSH 3.61 PFSH Surgical History History of right cataract surgery History of left cataract surgery History of cholecystectomy Family History Mother No problems noted. Father No problems noted. Social History Housing: House Alcohol intake: current Alcohol intake frequency: 0-2 drinks per day Patient Tobacco Use Status: Never used Tobacco Tobacco use type: Cigarette e-Cigarette/Vaping Use: Never Used Second Hand Smoke Exposure: No service: No Current occupational status: retired Cognitive needs: No Hearing needs: No Vision needs: No Questionnaire Thrive Questionnaire Date Thrive assessed: 05/18/22 GRACIE-7 AMB Questionnaire GRACIE-7 Date GRACIE - 7 assessed: 05/18/22 Source: Developed by Drs. Roni Falcon, Stephanie Mario, Jasbir Pierre and colleagues, with an educational melissa from [employer]. Review of Systems Const Denies headache(s) Eyes Denies loss of vision ENT Denies vertigo, Denies dizziness, Denies headache(s) and Denies sore throat Card Denies chest pain, Denies leg edema and Denies lightheadedness Resp Denies cough, Denies hemoptysis and Denies wheezing GI Denies abdominal pain, Denies melena, Denies constipation, Denies diarrhea and Denies vomiting Denies urinary frequency, Denies dysuria and Denies urinary urgency Musc Denies arthralgias, Denies joint swelling, Denies numbness and Denies tingling Neuro Denies Abnormal speech present, Denies behavioral changes, Denies vertigo, Denies dizziness, Denies headache(s), Denies loss of vision, Denies memory loss, Denies numbness and Denies tingling Psych Denies anxiety, Denies behavioral changes, Denies depression, Denies memory loss and Denies panic attacks Richie/Lymph Denies easy bleeding and Denies easy bruising Aller/Immun Denies wheezing Physical exam (Primary Care) Vital Signs: Last Vital Signs Pulse 63 02/28/24 10:02 BP 142/78 H 02/28/24 10:02 Pulse Ox 97 02/28/24 10:02 Oxygen Delivery Method Room Air 02/28/24 10:02 BMI result Body Mass Index 28.0 Tobacco/Smoking Status: Tobacco use Status Tobacco use date assessed 02/28/24 02/28/24 10:03 Patient Tobacco Use Status Never used Tobacco 02/28/24 10:03 Tobacco use type Cigarette 02/28/24 10:03 e-Cigarette/Vaping Use Never Used 02/28/24 10:03 Thrive Assessment: Date of Thrive Assessment Date Thrive assessed 05/18/22 02/28/24 10:03 Const General: healthy appearing, no acute distress, alert and awake Nutritional Appearance: well nourished Orientation/consciousness: oriented to person, oriented to place and oriented to time HENMT Ears: TM's normal bilaterally General nose exam: Normal nasal mucous membranes and turbinates present Eyes Conjunctivae: conjunctivae normal Sclerae: sclerae normal Pupils: Equal, round and reactive pupils present Neck Neck: Yes no lymphadenopathy and Yes no JVD Thyroid: Thyroid normal Carotids: no bruits Resp Effort & Inspection: normal respiratory effort and not tachypneic Auscultation: no crackles, no rales, no rhonchi and no wheezes Cardio Rate: regular rate Rhythm: regular rhythm Heart sounds: no murmurs and normal S1 and S2 GI Palpation (GI): Soft to palpation, nontender, no hepatomegaly and no splenomegaly Auscultation: normal bowel sounds Skin General skin exam: no rashes or lesions noted and dry skin Neuro General: oriented to person, oriented to place and oriented to time Cranial nerves: Yes Equal, round and reactive pupils present Speech: No Abnormal speech present Gait exam (Neuro): Normal gait present Motor exam (neuro): no tremor noted Extrem Right upper extremity: full ROM Left upper extremity: full ROM Right lower extremity: full ROM; no edema Left lower extremity: full ROM; no edema Psych Mental Status: mental status grossly normal Speech and movement: Normal speech and movement present Affect: normal affect Attitude: cooperative Thought process: Normal thought process present Coding Level of Care Code Est Pt Level 4 (36667) Diagnoses Essential hypertension I10 Hypertension type: essential hypertension Mixed hyperlipidemia E78.2 Hyperlipidemia type: mixed hyperlipidemia Acquired hypothyroidism E03.9 Hypothyroidism type: acquired Assessment & Plan Assessment & Plan (1) HTN (hypertension): Code(s): I10 - Essential (primary) hypertension Category: Medical Qualifiers: Hypertension type: essential hypertension Qualified Code(s): I10 - Essential (primary) hypertension Plan: Patient's blood pressure slightly elevated today in office. She will monitor blood pressure at home to ensure below 140/90 and will call back if so and make adjustment in her amlodipine dose. (2) HLD (hyperlipidemia): Code(s): E78.5 - Hyperlipidemia, unspecified Category: Medical Qualifiers: Hyperlipidemia type: mixed hyperlipidemia Qualified Code(s): E78.2 - Mixed hyperlipidemia Plan: Patient's most recent lipid panel showing good control over total cholesterol and LDL. Continues on simvastatin with good effect. Goal LDL to remain below 130 (3) Hypothyroid: Code(s): E03.9 - Hypothyroidism, unspecified Category: Medical Qualifiers: Hypothyroidism type: acquired Qualified Code(s): E03.9 - Hypothyroidism, unspecified Plan: Patient's most recent TSH stable. She continues on a low dose of levothyroxine. Will continue to follow TSH to assure normal Orders: Orders TSH reflex Free T4 Today E03.9 - Hypothyroidism, unspecified Lipid Panel Today E78.2 - Mixed hyperlipidemia Complete Blood Count no Diff Today I10 - Essential (primary) hypertension Microalbumin, Random (w Creat) Today I10 - Essential (primary) hypertension Comprehensive [place]. Panel Fast Today I10 - Essential (primary) hypertension Patient Instructions: Goal: Blood pressure to be below 140/90, LDL to remain below 130 Barriers: Adherence to physical activity and healthy eating habits
[2024-02-28 10:02] VITALS: BP 142/78; PULSE 63; O2SAT 97; BMI 28.0
== END 2024-02-28 10:41 | disposition home or self-care (01) ==
LOC: HO.HMCH 09:53
PROVIDERS: PCP Physician Assistant; Visit Provider Physician Assistant
DX: I10 Essential (primary) hypertension (principal); E78.2 Mixed hyperlipidemia; E03.9 Hypothyroidism, unspecified

== ENCOUNTER → 2024-02-28 09:53 | Outpatient (BNVA) | payer MEDICARE, SELFPAY | PROVIDERS: PCP Physician Assistant; Visit Provider Physician Assistant | DX: I10 Essential (primary) hypertension (principal); E78.2 Mixed hyperlipidemia; E03.9 Hypothyroidism, unspecified | CPT/HCPCS: 99212 ==

== ENCOUNTER 2024-08-05 13:49 | Outpatient (AMB) | payer MEDICARE, SELFPAY ==
--- NOTE | 2024-08-05 13:55 | MHC.PC.OV ---
Vital Signs 08/05/24 14:02 08/05/24 14:33 Height 5 ft 1 in Weight 152 lb BMI 28.7 BP 152/80 H 140/70 H Blood Pressure Location Lt brachial Position Sitting Pulse 62 Pulse Source Pulse Oximeter Temp 97.3 F Temp Source Temporal Artery Scan Pulse Oximetry (%) 98 Oxygen Delivery Method Room Air Intake Visit Reasons: f/u htn Med Care Manager Required: No Accompanied by: Self / Same As Patient Allergies sulfacetamide Allergy (Mild, Verified 08/05/24 14:12) Hives meclizine Adverse Reaction (Intermediate, Verified 08/05/24 14:12) Dizziness Sulfacetamide Sod-Pred Allergy (Intermediate, Uncoded 08/05/24 14:12) Unknown Medication List - Last Reconciled 08/05/24 by Haseeb Sanchez PA-C amlodipine 2.5 mg PO DAILY 90 days atenolol 50 mg (2 x 25 mg) PO DAILY codeine-guaifenesin 10-100 mg/5 mL 5 mL PO Q6H PRN 5 days levothyroxine 25 mcg PO DAILY 90 days lisinopril 40 mg PO DAILY 90 days qs-ybvmmju-brp-iron fm-FA-vitK 18 mg-400 mcg- 25 mcg (One-A-Day Women's Complete(with vit K)) 1 tab PO DAILY simvastatin 20 mg PO BEDTIME 90 days Tobacco use date assessed: 08/05/24 Dental Screening Dental Screen Date: 02/28/24 HPI f/u htn HPI Details Patient is an 84 -year-old female? here today for follow-up visit. Patient has a past medical history significant for hyperlipidemia, hypertension.? Concern--> She reports experiencing anxiety over the last couple of years, with recent intensification. She finds it challenging to engage in social activities such as shopping and attending anglican due to acute anxiety episodes. The patient's anxiety has also begun impacting her sleep, causing her to wake frequently and feel unrested. Alongside this, her blood pressure has increased during periods of heightened anxiety. Historically, her hypertension was under control with lisinopril and amlodipine, but recent stress may have resulted in elevated measurements. She is seeking medical management for her anxiety while trying to keep her current active routine without any sedative side effects. .. Hypothyroidism: Most recent TSH stable, she continues on levothyroxine 25 mcg. .. Vertigo: Reports having intermittent dizziness associated with head movements and being and high stimulating areas. Will her symptoms most consistent with a benign positional vertigo. Will likely benefit from vestibular therapy and patient agrees. PLAN: Will send for EKG to evaluate for any concerning arrhythmia .. Hypertension: Patient's blood pressure slightly elevated today in office.? She continues on current amlodipine and lisinopril. PLAN: Will work on her anxiety to see if this will reduce her blood pressure. Did discuss adding on hydrochlorothiazide 12.5 mg for better blood pressure control though will hold off on this for now..? Patient does not regularly check her blood pressure at home. She otherwise feels well .. Hyperlipidemia:? Has been stable with simvastatin 20 mg without side effects. Patient's total cholesterol has improved as well. [facility] Surgical History History of right cataract surgery History of left cataract surgery History of cholecystectomy Family History Mother No problems noted. Father No problems noted. Social History Housing: House Alcohol intake: current Alcohol intake frequency: 0-2 drinks per day Patient Tobacco Use Status: Never used Tobacco Tobacco use type: Cigarette e-Cigarette/Vaping Use: Never Used Second Hand Smoke Exposure: No service: No Current occupational status: retired Cognitive needs: No Hearing needs: No Vision needs: No Questionnaire PHQ-9 Over the last 2 weeks, how often have you been bothered by any of the following problems? 1. Little interest or pleasure in doing things: not at all 2. Feeling down, depressed, or hopeless: not at all 3. Trouble falling or staying asleep, or sleeping too much: not at all 4. Feeling tired or having little energy: not at all 5. Poor appetite or overeating: not at all 6. Feeling bad about yourself - or that you are a failure or have let yourself or your family down: not at all 7. Trouble concentrating on things, such as reading the newspaper or watching television: not at all 8. Moving or speaking so slowly that other people could have noticed. Or the opposite - being so fidgety or restless that you have been moving around a lot more than usual: not at all 9. Thoughts that you would be better off or of hurting yourself in some way: not at all Total score: 0 Depression Screening Interpretation: Negative Depression Screening Done: Yes 32211 - PHQ-9 Billing: Yes Source: Developed by Drs. Roni Falcon, Stephanie Mario, Jasbir Pierre and colleagues, with an educational melissa from [employer]. Thrive Questionnaire Date Thrive assessed: 08/05/24 I am a: Patient What is your living situation today?: I have a steady place to live Within the past 12 months, did the food you bought not last and you didn't have the money to get more?: Never true Within the past 12 months, did you worry whether your food would run out before you got money to buy more?: Never true Do you have trouble paying for medicines?: No Do you have trouble getting transportation to medical appointments?: No Do you have trouble paying your heating and electricity bill?: No Do you have trouble taking care of your child, family member or friend?: No Do you have trouble with day-to-day activities such as bathing, preparing meals, shopping, managing finances, etc.?: No Are you currently unemployed and looking for a job?: No Are you interested in more education?: No Please select the resources that you would like help with: None Currently or been in a relationship where the following occur: No concerns reported THRIVE Score: 0 AUDIT C Alcohol Use Questionnaire (AUDIT-C) 1. How often do you have a drink containing alcohol?: 2-4 times a month 2. How many drinks containing alcohol do you have on a typical day when you are drinking?: 3 or 4 3. How often do you have six or more drinks on one occasion?: Never Total Score: 3 GRACIE-7 AMB Questionnaire GRACIE-7 Date GRACIE - 7 assessed: 08/05/24 Feeling nervous, anxious, or on edge: 0 = Not at all Not being able to stop or control worryin = Not at all Worrying too much about different things: 0 = Not at all Trouble relaxin = Not at all Being so restless that it is hard to sit still: 0 = Not at all Becoming easily annoyed or irritable: 0 = Not at all Feeling afraid as if something awful might happen: 0 = Not at all Total GRACIE-7 score (0-4 normal; 5-9 mild; 10-14 moderate; 15-21 severe): 0 Source: Developed by Drs. Roni Falcon, Stephanie Mario, Jasbir Pierre and colleagues, with an educational melissa from [employer]. GRACIE-7 Assessment Billing GRACIE-7 Assessment Tool: GRACIE-7 Assessment 38545 Review of Systems Const Denies headache(s) Eyes Denies loss of vision ENT Denies vertigo, Denies dizziness, Denies headache(s) and Denies sore throat Card Denies chest pain, Denies leg edema and Denies lightheadedness Resp Denies cough, Denies hemoptysis and Denies wheezing GI Denies abdominal pain, Denies melena, Denies constipation, Denies diarrhea and Denies vomiting Denies urinary frequency, Denies dysuria and Denies urinary urgency Musc Denies arthralgias, Denies joint swelling, Denies numbness and Denies tingling Neuro Denies Abnormal speech present, Denies behavioral changes, Denies vertigo, Denies dizziness, Denies headache(s), Denies loss of vision, Denies memory loss, Denies numbness and Denies tingling Psych Denies anxiety, Denies behavioral changes, Denies depression, Denies memory loss and Denies panic attacks Richie/Lymph Denies easy bleeding and Denies easy bruising Aller/Immun Denies wheezing Physical exam (Primary Care) Vital Signs: Last Vital Signs Temp 97.3 F 08/05/24 14:02 Pulse 62 08/05/24 14:02 BP 140/70 H 08/05/24 14:33 Pulse Ox 98 08/05/24 14:02 Oxygen Delivery Method Room Air 08/05/24 14:02 BMI result Body Mass Index 28.7 Tobacco/Smoking Status: Tobacco use Status Tobacco use date assessed 08/05/24 08/05/24 14:09 Patient Tobacco Use Status Never used Tobacco 08/05/24 13:55 Tobacco use type Cigarette 08/05/24 13:55 e-Cigarette/Vaping Use Never Used 08/05/24 13:55 PHQ-9: PHQ-9 Score PHQ-9: Total score 0 08/05/24 14:17 Depression Screening Interpretation: Negative Thrive Assessment: Date of Thrive Assessment Date Thrive assessed 08/05/24 08/05/24 14:03 Currently or been in a relationship where the following occur: No concerns reported Const General: healthy appearing, no acute distress, alert and awake Nutritional Appearance: well nourished Orientation/consciousness: oriented to person, oriented to place and oriented to time HENMT Ears: TM's normal bilaterally General nose exam: Normal nasal mucous membranes and turbinates present Eyes Conjunctivae: conjunctivae normal Sclerae: sclerae normal Pupils: Equal, round and reactive pupils present Neck Neck: Yes no lymphadenopathy and Yes no JVD Thyroid: Thyroid normal Carotids: no bruits Resp Effort & Inspection: normal respiratory effort and not tachypneic Auscultation: no crackles, no rales, no rhonchi and no wheezes Cardio Rate: regular rate Rhythm: regular rhythm Heart sounds: no murmurs and normal S1 and S2 GI Palpation (GI): Soft to palpation, nontender, no hepatomegaly and no splenomegaly Auscultation: normal bowel sounds Skin General skin exam: no rashes or lesions noted and dry skin Neuro General: oriented to person, oriented to place and oriented to time Cranial nerves: Yes Equal, round and reactive pupils present Speech: No Abnormal speech present Gait exam (Neuro): Normal gait present Motor exam (neuro): no tremor noted Extrem Right upper extremity: full ROM Left upper extremity: full ROM Right lower extremity: full ROM; no edema Left lower extremity: full ROM; no edema Psych Mental Status: mental status grossly normal Speech and movement: Normal speech and movement present Affect: normal affect Attitude: cooperative Thought process: Normal thought process present Coding Level of Care Code Est Pt Level 4 (61078) Diagnoses Essential hypertension I10 Hypertension type: essential hypertension Mixed hyperlipidemia E78.2 Hyperlipidemia type: mixed hyperlipidemia GRACIE (generalized anxiety disorder) F41.1 Additional Codes GRACIE-7 Assessment Billing - GRACIE-7 Assessment Tool: GRACIE-7 Assessment 04384 ([id number]) PHQ-9 - 86563 - PHQ-9 Billing: Yes ([id number]) Assessment & Plan Assessment & Plan (1) HTN (hypertension): Code(s): I10 - Essential (primary) hypertension Category: Medical Qualifiers: Hypertension type: essential hypertension Qualified Code(s): I10 - Essential (primary) hypertension Plan: Patient's blood pressure slightly elevated today. She continues on atenolol, lisinopril and amlodipine. She has been well managed for quite some time. She has been more anxious has of the since her has last year. She is interested in being treated for her anxiety disorder. Will continue her current antihypertensive regime this time and will consider adding on hydrochlorothiazide 12.5 and blood pressures remain high. Goal blood pressure to be below 140/90 (2) HLD (hyperlipidemia): Code(s): E78.5 - Hyperlipidemia, unspecified Category: Medical Qualifiers: Hyperlipidemia type: mixed hyperlipidemia Qualified Code(s): E78.2 - Mixed hyperlipidemia Plan: Patient has a history of borderline high cholesterol. Continues on simvastatin 20 mg. Most recent lipid panel showing good control over total cholesterol and LDL. Goal LDL is to remain below 130 (3) GRACIE (generalized anxiety disorder): Code(s): F41.1 - Generalized anxiety disorder Category: Medical Plan: Patient is exhibiting signs and symptoms of some worsening anxiety. She is interested in taking daily medication to help reduce her anxious symptoms and panic. We did discuss as needed medication though she is concerned about side effects of lethargy. Will start sertraline 25 mg daily. At this point she is not interested in any mental health therapist. Will follow-up in 4 weeks to evaluate the effectiveness of the medication. Orders: Orders ECG 12 lead EKG 08/05/24 I10 - Essential (primary) hypertension Medications: New sertraline 25 mg PO DAILY 30 tabs 1RF 30 days F41.1 - Generalized anxiety disorder
[2024-08-05 14:02] VITALS: BP 152/80; PULSE 62; TEMP 36.3; O2SAT 98; BMI 28.7
[2024-08-05 14:33] VITALS: BP 140/70
--- OUTSIDE RECORDS SUMMARY | 2024-08-05 16:53 | XMS_ITS | Patient Health Record ---
Author Organization [facility] Address [address] [place] [address] Care Team Providers Care Software Clerk Name Role Phone Haseeb Sanchez Primary Care Provider Unavailab Faisal Roa Unavailable [phone] Allergies Allergen (clinical drug ingredient) Drug/Non Drug Allergy documented on EMR Reaction Allergy Type Onset Date Status sulfamethoxazole / trimethoprim Bactrim Unknown Drug Allergy Active Reason For Referral No Information Medications Medication SIG (Take, Route, Frequency, Duration) Notes Start Date End Date Status Lisinopril 40 MG TAKE 1 TABLET BY NANCY TH ONCE A DAY Oral for 90 Active Simvastatin 20 MG TAKE 1 TABLET DAILY Oral for 90 Active Cephalexin 500 MG 1 tablet Orally Twic e a day for 10 day(s) Not-Taking Levothyroxine-Liothyronin e Active amLODIPine Besylate 2.5 MG TAKE 1 TABLET DAILY Oral for 90 Active Atenolol 25 MG TAKE 2 TABLETS ONCE A DAY Oral for 90 Active Multivitamin Active Immunizations Vaccine Route Administration Date Status Comme nts COVID-19 Pfizer BioNTech Vaccine Unknown 01/25/2022 Administered 1st 06/08/2020,02/08/21 2nd 06/22/2020 Influenza Unknown 01/25/2022 Administered Social History Tobacco Use: Social History Observation Description Date Details (start date - stop date) Never Smoker NA - NA Alcohol Screen Question Answer Notes Did you have a drink containing alcohol in the p ast year? No Points 0 Interpretation Negative Tobacco use other than smoking: Question Answer Notes Are you an other tobacco user? No Tobacco Control (Standard) Question Answer Notes Tobacco use: Nonsmoker Problems Problem Type SNOMED Code ICD Code Onset Dates Problem Status W/U Status Risk Notes Problem Atherosclerosis of [place] arteries of the extremities ([id number]) Atherosclerosis of [place] artery of both lower extremities, with unspecified presence of clinical manifestation (I70.203) Active confirmed Vital Signs Blood pressure diastolic 78 mm Hg 06/13/2024 Height 5 ft 2 in in 06/13/2024 Blood pressure systolic 120 mm Hg 06/13/2024 Weight 142 lbs 06/13/2024 BMI 25.97 kg/m2 06/13/2024 Procedures Procedure Date Ordered Date Performed Result Body Sit e 24141-JFXLCXC NAIL, 6 OR MORE 01/01/2024 N/A 30255-DBUX SKIN LESIONS, OVER 4 01/01/2024 N/A 65080-OUILIVV NAIL, 6 OR MORE 06/13/2024 N/A 22817-IRYZ SKIN LESIONS, OVER 4 06/13/2024 N/A Encounters Encounter Location Date Provider Diagnosis [address] [address] 01/01/2024 Faisal Carvajal Atherosclerosis of [place] artery of both lower extremities, with unspecified presence of clinical manifestation I70.203 ; Onychomycosis B35.1 ; Pain of toe of right foot M79.674 and Pain of toe of left foot M79.[address] [address] 06/13/2024 Faisal Carvajal Atherosclerosis of [place] artery of both lower extremities, with unspecified presence of clinical manifestation I70.203 ; Onychomycosis B35.1 ; Pain of toe of right foot M79.674 and Pain of toe of left foot M79.[address] [address] 10/19/2023 Faisal Carvajal [address] [address] 03/26/2024 Faisal Carvajal Assessments Encounter Date Diagnosis (ICD Code) Assessment Notes Treatment Notes Treatment Clinical Notes Section Notes 01/01/2024 Onychomycosis (ICD-10 - B35.1) 01/01/2024 Atherosclerosis of [place] artery of both lower extremities, with unspecified presence of clinical manifestation (ICD-10 - I70.203) 06/13/2024 Onychomycosis (ICD-10 - B35.1) 06/13/2024 Atherosclerosis of [place] artery of both lower extremities, with unspecified presence of clinical manifestation (ICD-10 - I70.203) 01/01/2024 Pain of toe of right foot (ICD-10 - M79.674) 06/13/2024 Pain of toe of right foot (ICD-10 - M79.674) 01/01/2024 Pain of toe of left foot (ICD-10 - M79.675) 06/13/2024 Pain of toe of left foot (ICD-10 - M79.675) Plan Of Treatment Pending Test Test Name Order Date 68230-CFXWPNN NAIL, 6 OR MORE 06/08/2020 72379-IBHPODF NAIL, 6 OR MORE 09/07/2020 09202-BHYNABN NAIL, 6 OR MORE 12/07/2020 96995-OLIYJEK NAIL, 6 OR MORE 03/08/2021 99227-LFRFZEU NAIL, 6 OR MORE 06/07/2021 38450-QLCSAFO NAIL, 6 OR MORE 08/23/2021 08232-GNRFYHC NAIL, 6 OR MORE 01/10/2022 56654-BIZULWQ NAIL, 6 OR MORE 05/09/2022 77262-QJSKMDR NAIL, 6 OR MORE 09/05/2022 51651-LIXULXN NAIL, 6 OR MORE 01/02/2023 89689-WYKLXIR NAIL, 6 OR MORE 05/01/2023 83053-TEKNOBD NAIL, 6 OR MORE 07/31/2023 41422-QKCDYKA NAIL, 6 OR MORE 01/01/2024 24821-KYJCNLZ NAIL, 6 OR MORE 06/13/2024 46012-Ytbutcyr Plate 09/05/2022 31815 I&D ABSCESS- SIMPLE,SINGLE 018 38951-PJZM SKIN LESIONS, OVER 4 05/01/19 24 18404-USQA SKIN LESIONS, OVER 4 06/13/19 25 16177-VDDS SKIN LESIONS, OVER 4 01/01/20 24 98756-POOP SKIN LESIONS, OVER 4 07/31/19 24 08418-XCTL SKIN LESIONS, 2 TO 4 01/03/20 23 11192-GVIA SKIN LESIONS, 2 TO 4 09/06/19 23 08443-NRPN SKIN LESIONS, 2 TO 4 05/09/19 23 78575-EJDU SKIN LESIONS, 2 TO 4 01/11/20 22 45749-HCLQ SKIN LESIONS, 2 TO 4 08/24/19 22 Next Appt Details Provider Name:Faisal Carvajal , 09/16/2024 10:00:00 AM, [address] [place], [address], Insurance Providers Payer Name Payer Address Payer Phone Subscriber Number Group Number Insured Name Patient Relationship to Insured Coverage Start Date Coverage End Date Medicare National [employer] [address] [place] [address] [id number] Yudith Espitia Self - patient is the insured [employer] [address] [place] [address] [id number] Yudith Espitia Self - patient is the insured Medical (General) History Medical History History ICD Code Chicken pox Measles Hypertension Cholesterol Heart disease vertigo Surgical History Surgery Date(Month/Year) gall bladder 1967 Hospitalization History Reason Date(Month/Year) [facility] [place]
--- OUTSIDE RECORDS SUMMARY | 2024-08-05 16:54 | XMS_ITS ---
Author Organization [facility] Address [address] [place] [address] Care Team Providers Care Arranger Assembler Name Role Phone Haseeb Sanchez Primary Care Provider Unavailab Faisal Roa Unavailable [phone] REASON FOR VISIT rs from 04/01/24 Encounters Encounter Location Date Provider Diagnosis [address] [address] 03/26/2024 Faisal Carvajal Plan Of Treatment Next Appt Details Provider Name:Faisal Carvajal , 09/16/2024 10:00:00 AM, [address] [place], [address], Progress Notes * Jefe ARAUJOOB:1940 (84 yo F)Acc No.[id number]:03/26/2024 Patient:?Yudith ARAUJO :1940???Age:84 Y???Sex:Female Address:[address] [place] [address] [place], [address] * true * Date:? Generated for Printi ng/Faxing/eTransmitting on:?08/05/2024 04:53 PM EDT
--- OUTSIDE RECORDS SUMMARY | 2024-08-05 16:54 | XMS_ITS | Clinical Summary ---
Author Organization [facility] Address [address] [place] [address] Care Team Providers Care Cut Off [place] Name Role Phone Unavailable Primary Care Provider Unavailabl e Allergies Active Allergy Reactions Criticality Noted Date Comments Sulfa Antibiotics Hives 07/17/2017 Medications Medication Sig Dispensed Refills Start Date End Date Status lisinopril (PRINIVIL,ZESTRIL) tablet 40 mgIndications:Essential hypertension,Pure hypercholesterolemia Take 1 tablet (40 mg total) by mouth daily. 90 tablet 3 03/18/2020 Active simvastatin (ZOCOR) tablet 20 mgIndications:Essential hypertension,Pure hypercholesterolemia Take 1 tablet (20 mg total) by mouth daily. 90 tablet 3 03/18/2020 Active amLODIPine (NORVASC) tablet 2.5 mgIndications:Essential hypertension,Pure hypercholesterolemia Take 1 tablet (2.5 mg total) by mouth daily. 90 tablet 3 03/18/2020 Active atenolol (TENORMIN) tablet 25 mgIndications:Essential hypertension,Pure hypercholesterolemia Take 2 tablets (50 mg total) by mouth daily. 180 tablet 3 03/18/2020 Active Active Problems Problem Noted Date Diagnosed Date Osteopenia 08/08/2018 Pure hypercholesterolemia 01/17/2018 Seasonal allergic rhinitis due to pollen 018 Hypertension Resolved Problems Problem Noted Date Diagnosed Date Resolved Date Hyperlipidemia 01/17/2018 Immunizations Name Administration Dates Next Due Influenza Recomb Vaccine (RIV3) inactive 017 Influenza Trivalent (Fluzone High Dose) 0.7 mL (65yrs &>) 01/17/2018 Family History Medical History Relation Name Comments Prostate cancer Father Heart disease Mother Relation Name Status Comments Daughter Alive Father Maternal Grandfather Maternal Grandmother Mother Paternal Grandfather Paternal Grandmother Son Alive Social History Tobacco Use Types Packs/Day Years Used Date Smoking Tobacco: Never Smokeless Tobacco: Never Alcohol Use Standard Drinks/Week Comments Yes 7 (1 standard drink = 0.6 oz pur e alcohol) Sex and Gender Information Value Date Recorded Sex Assigned at Female 08/08/2018 12:48 PM EDT Gender Identity Female 08/08/2018 12:48 PM EDT Sexual Orientation Not on file Last Filed Vital Signs Vital Sign Reading Time Taken Comments Blood Pressure 120/90 03/18/2020 9:48 AM EST Pulse 73 03/18/2020 9:48 AM EST Temperature 36.3 ??C (97.4 ??F) 03/18/2020 9:48 AM ES T Respiratory Rate 16 03/18/2020 9:48 AM EST Oxygen Saturation 98% 03/18/2020 9:48 AM EST Inhaled Oxygen Concentration - - Weight 68.9 kg (151 lb 12.8 oz) 03/18/2020 9:48 AM EST Height 152.4 cm (5') 03/18/2020 9:48 AM EST Body Mass Index 29.65 03/18/2020 9:48 AM EST Plan of Treatment Health Maintenance Due Date Last Done Comments COVID-19 Vaccine (#1) 1940 Preventative Health Evaluation 02/18/1958 Fall Risk Assessment 02/18/2005 Pneumococcal Vaccine (1 of 1 - PCV) 02/18/2005 RSV Adult > 60+ Yrs or (1 - 1-dose 75+ series) 02/18/2015 Osteoporosis Screening (DEXA Scan) 06/22/2017 06/22/2015 Depression Screening 03/18/2021 03/18/2020, 01/18/20 18 Influenza Vaccine (#1) 2023 , 02/09/2020, 01/17/2018, Additional history exists DTap / Tdap / Td (2 - Td or Tdap) 05/31/2024 05/31/2014 Shingrix-Zoster Vaccine Addressed 08/09/19 (Declined), 01/17/2018 (Declined) Overridden with the intention of not completing the topic Hepatitis B Vaccines Aged Out No long er eligible based on patient's age to complete this topic RSV Ped < 20 months Aged Out No longe r eligible based on patient's age to complete this topic
--- OUTSIDE RECORDS SUMMARY | 2024-08-05 16:54 | XMS_ITS ---
Author Organization [facility] Address [address] [facility] [place] [address] Care Team Providers Care Product Planner Name Role Phone Haseeb Sanchez Primary Care Provider Unavailab Faisal Roa Unavailable [phone] Allergies Allergen (clinical drug ingredient) Drug/Non Drug Allergy documented on EMR Reaction Allergy Type Onset Date Status sulfamethoxazole / trimethoprim Bactrim Unknown Drug Allergy Active REASON FOR VISIT At Risk Footcare, Painful Nail(s) aggrevated by shoes and causing difficulty standing/walking. Medications Medication SIG (Take, Route, Frequency, Duration) Notes Start Date End Date Status Lisinopril 40 MG TAKE 1 TABLET BY NANCY TH ONCE A DAY Oral for 90 Active Simvastatin 20 MG TAKE 1 TABLET DAILY Oral for 90 Active Cephalexin 500 MG 1 tablet Orally Twic e a day for 10 day(s) Not-Taking Atenolol 25 MG TAKE 2 TABLETS ONCE A DAY Oral for 90 Active Multivitamin Active Levothyroxine-Liothyronin e Active amLODIPine Besylate 2.5 MG TAKE 1 TABLET DAILY Oral for 90 Active Social History Tobacco Use: Social History Observation [...] (Standard) Question Answer Notes Tobacco use: Nonsmoker Vital Signs Height 5 ft 2 in in 06/13/2024 Weight 142 lbs 06/13/2024 BMI 25.97 kg/m2 06/13/2024 Blood pressure systolic 120 mm Hg 06/13/19 25 Blood pressure diastolic 78 mm Hg 025 Procedures Procedure Date Ordered Date Performed Result Body Sit e 96475-MJRYFZC NAIL, 6 OR MORE 06/13/2024 N/A 97629-KCWP SKIN LESIONS, OVER 4 06/13/2024 N/A Encounters Encounter Location Date Provider Diagnosis [facility] [address] [address] 06/13/2024 Faisal Alena Atherosclerosis of [place] artery of both lower extremities, with unspecified presence of clinical manifestation I70.203 ; Onychomycosis B35.1 ; Pain of toe of right foot M79.674 and Pain of toe of left foot M79.675 Assessments Encounter Date Diagnosis (ICD Code) Assessment Notes Treatment Notes Treatment Clinical Notes Section Notes 06/13/2024 Atherosclerosis of [place] artery of both lower extremities, with unspecified presence of clinical manifestation (ICD-10 - I70.203) 06/13/2024 Onychomycosis (ICD-10 - B35.1) 06/13/2024 Pain of toe of right foot (ICD-10 - M79.674) 06/13/2024 Pain of toe of left foot (ICD-10 - M79.675) Plan Of Treatment Pending Test Test Name Order Date 45258-EJYUWDL NAIL, 6 OR MORE 06/13/2024 84939-GTFB SKIN LESIONS, OVER 4 06/13/19 25 Next Appt Details Follow Up: prn, Reason: Provider Name:Faisal Carvajal , 09/16/2024 10:00:00 AM, [address] [place] [address], [phone], Procedure Notes * Category Sub-Category Detail Notes Debride Nail 6-10 Nail debridement Due to the cl inical pathology outlined in the exam findings, performance of this nail treatment is medically necessary as its management by an unskilled/untrained nonprofessional would put this patients foot and overall health at risk. Therefore, debridement to affected nail(s), as described in exam ( T1, T2, T3, T6, T7, T8, T9 ), was performed exclusively by the physician of record to reduce/remove overall nail length, girth, thickness, subungual debris, and necrotic tissue, by manual and/or electrical means through the use of a nail nipper and/or dremel-type rail grinder, to a more viable healthy nail plate or bed tissue 6-10 nails in total. Silver nitrate was used for any petechial bleeding as necessary. Definitive antifungal treatment options, both pharmaceutical and surgical, have been reviewed and discussed with the patient. The patient solely prefers the use of intermittent/as needed professional debridement services for their nail condition and understands the need for additional periodic treatments to maintain effectiveness in symptomatic relief - 40909 Keratoma Treatment Parring or Cutting o f Benign Hyperkeratotic Lesion(s) (-57) More than 4 Lesions - Due to the at risk nature of the patients medical condition as documented in the exam findings, performance of this keratoderma treatment is medically necessary as its management by an unskilled/untrained nonprofessional would put this patients foot and overall health at risk. Therefore, the benign hyperkeratotic lesions, ( 6 ) in total, locations as stated and described in the exam ( Medial, IPJ, TA, Medial, IPJ, T5, SUB MTH (s), 1, B/L,Plantar, Heel(s), B/L ), were pared, and/or cut utilizing a sterile 15 blade, tissue nippers, and/or power dremel instrumentation by the physician of record - 03139, Q8 Progress Notes * ARAUJOShabnam HUBBARDMargieOB:1940 (84 yo F)Acc No.[id number]:06/13/2024 Progress Note Patient:?Yudith ARAUJO Provider:?Faisal Carvajal DPM :1940???Age:84 Y???Sex:Female D ate:06/13/2024 Address:[address] [place] [address], [place] Pcp:Haseeb Sanchez Subjective: * Chief Complaints: * ???At Risk FootcarePainful N ail(s) aggrevated by shoes and causing difficulty standing/walking. * HPI: ???At Risk footcare:?Pt States Last PCP Visit:?Date?10/09/2023 ?Misc?States had to cx in Dec because of husbands .? * ROS:?General/Constitutional:?Nausea?denies.?Vomiting?denies.?Hunger Thirst?denies.?Loss appetite?denies.?Chills?denies.?Fatigue?denies.?Fever?denies.?Night Sweats?denies.?Unexplained weight loss?denies.?Unexplained weight gain?denies.?HEENTM:?Dentures?denies.?Dizziness?denies.?Glasses/contacts?denies.?Retinopathy?de nies.?Blurred/double vision?denies.?TMJ?denies.?Discharge/drainage?denies.?Implants?denies.?Sore throat?denies.?Dental implants?denies.?Hard of hearing ?denies.?Difficulty chewing/swallowing/speaking?denies.?Nose bleeds?denies.?Sore mouth?denies.?Respiratory:?On Oxygen?denies.?Pneumonia/pleurisy?denies.?Bronchitis?denies.?Emphysema?denies.?C oughing?denies.?Cough blood?denies.?Shortness of breath?denies.?Wheezing?denies.?Cardiovascular:?Pacemaker?denies.?MVP?denies.?WPW?denies.?CHF?denies.?Heart attack?denies.?Septal defect?denies.?Rapid beat?denies.?Chest pain ?denies.?Atrial Fib.?denies.?Murmur/Palpitations?denies.?Gastrointestinal:?Hemorrhoids?denies.?Stomach/Abdominal pain?denies.?Dark blood stool?denies.?Irritable bowel ?denies.?Constipation?denies.?Diarrhea?denies.?Hematology:?Swelling?denies.?Clots?denies.?Varicose Veins?denies.?Bruising?denies.?Bleeding problem?denies.?Genitourinary:?Blood urine?denies.?Frequent/Painfu/urination/bladder control?denies.?Kidney stones?denies.?Infection (UTI)?denies.?Nephropathy?denies.?sex trans dis (STD)?denies.?Prostate?denies.?Musculoskeletal:?Hammertoes?denies.?Bunions?admits.?Back Pain?denies.?Muscle Cramps/ Resting?denies.?Muscle cramps / walking?denies.?Generalized aches and pains?denies.?Weakness?denies.?Integ.:?Berry?denies.?Scars?denies.?Corns/calluses?admits.?Ingrown nails?admits.?Painful nails?admits.?Open Sores?denies.?Rashes?denies.?Neurologic:?Difficulty sleeping?denies.?Brain disorder?denies.?Numbness?denies.?Balance trouble?denies.?Confusion?denies.?Fainting/blackouts?denies.?Tingling?denies.?Tr emors?denies.? * Medical History:? * Surgical History:?soni bladd er 1967 * Hospitalization/Major Diagno stic Procedure:?[facility] [place] [facility] [place]-[facility] 07/2021 * Family History:?Mother: dece ased, foot problems, diagnosed with Unspecified essential hypertension, Family history of arthritis.?Father: .? * Social History:?Tobacco Use:?Tobacco use other than smoking?Are you an other tobacco user??No ?Tobacco Control (Standard)?Tobacco use:?Nonsmoker ???Drugs/Alcohol:?Drugs?Have you used drugs other than those for medical reasons in the past 12 months??No ?Alcohol Screen?Did you have a drink containing alcohol in the past year??No ?Points?0 ?Interpretation?Negative ???Miscellaneous:?Caffeine: yes, frequency:, 2-3 cups per day. ?Children: yes, 2. 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 ?Marital status: . ?Occupation: Retired- [employer]. * Medications:?TakingLevothyro xine-Liothyronine amLODIPine Besylate 2.5 MG Tablet TAKE 1 TABLET DAILY Oral Atenolol 25 MG Tablet TAKE 2 TABLETS ONCE A DAY Oral Multivitamin Lisinopril 40 MG Tablet TAKE 1 TABLET BY MOUTH ONCE A DAY Oral Simvastatin 20 MG Tablet TAKE 1 TABLET DAILY Oral Taking Levothyroxine-Liothyronine Taking amLODIPine Besylate 2.5 MG Tablet TAKE 1 TABLET DAILY Oral Taking Atenolol 25 MG Tablet TAKE 2 TABLETS ONCE A DAY Oral Taking Multivitamin Taking Lisinopril 40 MG Tablet TAKE 1 TABLET BY MOUTH ONCE A DAY Oral Taking Simvastatin 20 MG Tablet TAKE 1 TABLET DAILY Oral Not-Taking/PRNCephalexin 500 MG Tablet 1 tablet Orally Twice a day Medication List reviewed and reconciled with the patientNot-Taking/PRN Cephalexin 500 MG Tablet 1 tablet Orally Twice a day Medication List reviewed and reconciled with the patient * Allergies:?Bactrimyes[Allerg ies Verified] Objective: * Vitals:?Ht: 5 ft 2 in, Wt:14 2, BMI: 25.97, Shoe size:7, BP:120/78mm Hg, Wt-k.41 kg. * Examination: ???Vascular: ?DP PULSES (B):? 0/4, B/L.?PT PULSES (B):?0/4, LEFT , 1/4 , RIGHT.?CAPILLARY FILL TIME:? delayed, all digits, B/L.?TROPHIC CONDITION-TEXTURE/ELASTICITY/TURGOR/HAIR GROWTH (B):? decreased,?with sparse to absent hair growth, B/L.?TEMPERTURE GRADIENT (C):? decreased, cool to cool, proximal to distal, B/L.?PIGMENTATION:? rubrous, B/L.?EDEMA (C):? 1/4, non-pitting, without aching pain, B/L, Leg(s), Ankle(s).?CLAUDICATION (C):?denies, B/L.?REST PAIN:?denies, B/L.?Nails: ?NAILS are:?Elongated, overgrown, dystrophic, lytic, greater than 3mm thick, discolored and friable with crumbly malodorous subungual debris, with pain on palpation, T1, T2, T3, T6, T7, T8, T9, all other nails not described with characteristics as possessing mycosis are elongated, overgrown, and dystrophic.?Dermatologic: ?SKIN FINDINGS:? Skin exam reveals Keratotic lesion(s) located at, Medial, IPJ, TA, Medial, IPJ, T5, SUB MTH (s), 1, B/L,Plantar, Heel(s), B/L.? Assessment: * Assessment: 1.?Onychomycosis - B35.1???2 .?Atherosclerosis of [place] artery of both lower extremities, with unspecified presence of clinical manifestation - I70.203 (Primary)???3.?Pain of toe of right foot - M79.674???4.?Pain of toe of left foot - M79.675??? Plan: * Treatment: 2.?Onychomycosis?Procedure: 55187-ADDNASZ NAIL, 6 OR MORE * Procedures:?Debride Nail 6-10:?Nail debridement?Due to the clinical pathology outlined in the exam findings, performance of this nail treatment is medically necessary as its management by an unskilled/untrained nonprofessional would put this patients foot and overall health at risk. Therefore, debridement to affected nail(s), as described in exam (??T1,?T2,?T3,?T6,?T7,?T8,?T9?), was performed exclusively by the physician of record to reduce/remove overall nail length, girth, thickness, subungual debris, and necrotic tissue, by manual and/or electrical means through the use of a nail nipper and/or dremel-type rail grinder, to a more viable healthy nail plate or bed tissue 6- 10 nails in total. Silver nitrate was used for any petechial bleeding as necessary. Definitive antifungal treatment options, both pharmaceutical and surgical, have been reviewed and discussed with the patient. The patient solely prefers the use of intermittent/as needed professional debridement services for their nail condition and understands the need for additional periodic treatments to maintain effectiveness in symptomatic relief - 69604.?Keratoma Treatment:?Parring or Cutting of Benign Hyperkeratotic Lesion(s)?(-57) More than 4 Lesions - Due to the at risk nature of the patients medical condition as documented in the exam findings, performance of this keratoderma treatment is medically necessary as its management by an unskilled/untrained nonprofessional would put this patients foot and overall health at risk. Therefore, the benign hyperkeratotic lesions, ( 6 ) in total, locations as stated and described in the exam (?Medial,?IPJ,?TA,?Medial,?IPJ,?T5,?SUB MTH (s),?1,?B/L,Plantar,?Heel(s),?B/L?), were pared, and/or cut utilizing a sterile 15 blade, tissue nippers, and/or power dremel instrumentation by the physician of record - 56069, Q8.? * Procedure Codes:?94540 DEBRI DE NAIL, 6 OR MORE, Modifiers: XS 21020 TRIM SKIN LESIONS, OVER 4, Modifiers: XS , Q8 * Follow Up:?prn * Images: * Sign off status: Completed true * Provider:?Faisal Carvajal DPM Date:?2024 Generated for Magdy fam/Salazar/Sawyer on:?08/05/2024 04:53 PM EDT History and Physical Notes * HPI (History of Present Illness) Category Sub-Category Detail Notes Category Not es At Risk footcare Pt States Last PCP Visit: Date: 4 [facility] [place] States had to cx in Dec because of husbands Examination Category Sub-Category Detail Notes Category Not es Dermatologic SKIN FINDINGS: Skin exam reveal s Keratotic lesion(s) located at, Medial, IPJ, TA, Medial, IPJ, T5, SUB MTH (s), 1, B/L,Plantar, Heel(s), B/L Vascular DP PULSES (B): 0/4, B/L PT PULSES (B): 0/4, LEFT , 1/4 , RI GHT CAPILLARY FILL TIME: delayed, all digits , B/L TEMPERTURE GRADIENT (C): decreased, cool to cool, proximal to distal, B/L TROPHIC CONDITION-TEXTURE/ELASTICITY/TURGOR/HAIR GROWTH (B): decreased, with sparse to absent hair gr owth, B/L EDEMA (C): 1/4, non-pitting, wi thout aching pain, B/L, Leg(s), Ankle(s) CLAUDICATION (C): denies, B/L REST PAIN: denies, B/L PIGMENTATION: rubrous, B/L Nails NAILS are: Elongated, overg rown, dystrophic, lytic, greater than 3mm thick, discolored and friable with crumbly malodorous subungual debris, with pain on palpation, T1, T2, T3, T6, T7, T8, T9, all other nails not described with characteristics as possessing mycosis are elongated, overgrown, and dystrophic
--- OUTSIDE RECORDS SUMMARY | 2024-08-05 16:54 | XMS_ITS ---
Author Organization [facility] Address [address] [place] [address] Care Team Providers Care Chemist Pharmaceutical Name Role Phone Haseeb Sanchez Primary Care Provider Unavailab Faisal Roa Unavailable [phone] Encounters Encounter Location Date Provider Diagnosis [address] [address] 04/01/2024 Faisal Carvajal Plan Of Treatment Next Appt Details Provider Name:Faisal Carvajal , 09/16/2024 10:00:00 AM, [address] [place] [address], [address], Progress Notes * Jefe ARAUJOOB:1940 (84 yo F)Acc No.[id number]:04/01/2024 Progress Note Patient:?Yudith ARAUJO Provider:?Faisal Carvajal DPM :1940???Age:84 Y???Sex:Female D ate:04/01/2024 Address:[address] [place] [address] [facility] [id number] Pcp:Haseeb Sanchez Subjective: * Chief Complaints: * ??? * Medical History:? Objective: * Vitals:? Assessment: Plan: * Treatment: * Images: * The named appointment provid er may or may not be the originator of this progress note, and it is not deemed complete until electronically signed by the appointment provider. Sign off status: Pending * Provider:?Faisal Carvajal DPM Date:?2023 Generated for Magdy fam/Salazar/Sawyer on:?08/05/2024 04:53 PM EDT
== END 2024-08-05 14:55 | disposition home or self-care (01) ==
LOC: HO.HMCH 13:49
PROVIDERS: PCP Physician Assistant; Visit Provider Physician Assistant
DX: I10 Essential (primary) hypertension (principal); E78.2 Mixed hyperlipidemia; F41.1 Generalized anxiety disorder

== ENCOUNTER → 2024-08-05 13:49 | Outpatient (BNVA) | payer MEDICARE, SELFPAY | PROVIDERS: PCP Physician Assistant; Visit Provider Physician Assistant | DX: I10 Essential (primary) hypertension (principal); E78.2 Mixed hyperlipidemia; F41.1 Generalized anxiety disorder | CPT/HCPCS: 96127; 99212 ==

== ENCOUNTER 2024-09-03 09:52 | Outpatient (AMB) | payer MEDICARE, SELFPAY ==
--- NOTE | 2024-09-03 09:56 | MHC.PC.OV ---
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: No Information Interpreted: non-clinical & clinical Epic Anesthesia Analyst: Not Required per policy Accompanied by: Self / Same As Patient Allergies sulfacetamide Allergy (Mild, Verified 09/03/24 10:53) Hives meclizine Adverse Reaction (Intermediate, Verified 09/03/24 10:53) Dizziness Sulfacetamide Sod-Pred Allergy (Intermediate, Uncoded 09/03/24 10:53) Unknown Medication List - Last Reconciled 09/03/24 by Haseeb Sanchez PA-C amlodipine 2.5 mg PO DAILY 90 days atenolol 50 mg (2 x 25 mg) PO DAILY codeine-guaifenesin 10-100 mg/5 mL 5 mL PO Q6H PRN 5 days levothyroxine 25 mcg PO DAILY 90 days lisinopril 40 mg PO DAILY 90 days hq-aeagneq-rsf-iron fm-FA-vitK 18 mg-400 mcg- 25 mcg (One-A-Day Women's Complete(with vit K)) 1 tab PO DAILY sertraline 25 mg PO DAILY 30 days simvastatin 20 mg PO BEDTIME 90 days Tobacco use date assessed: 08/05/24 Fall risk assessment: No Falls in past year Last assessed Fall Risk: 09/03/24 Dental Screening Dental Screen Date: 09/03/24 Did you have a dental visit in the last 12 months?: Yes Did you have a dental problem in the last 6 months where you did not have access to dental care?: No Was dental information given to patient?: Patient has dentist HPI Med Review HPI Details Patient is an 84-year-old female being evaluated today via telephone only. At last visit we discussed patient's increasing anxiety and she was willing to try an SSRI. Unfortunately has not picked up the prescription of sertraline as she felt she did not need it. She has been trying CBD gummies from a local dispensary which do help as needed for her anxiety. Otherwise she reports she feels fine and is not interested in any daily medication for her anxiety. PENDING SALE TO [facility] Surgical History History of right cataract surgery History of left cataract surgery History of cholecystectomy Family History Mother No problems noted. Father No problems noted. Social History Housing: House Alcohol intake: current Alcohol intake frequency: 0-2 drinks per day Patient Tobacco Use Status: Never used Tobacco Tobacco use type: Cigarette e-Cigarette/Vaping Use: Never Used Second Hand Smoke Exposure: No service: No Current occupational status: retired Cognitive needs: No Hearing needs: No Vision needs: No Questionnaire Thrive Questionnaire Date Thrive assessed: 08/05/24 GRACIE-7 AMB Questionnaire GRACIE-7 Date GRACIE - 7 assessed: 08/05/24 Source: Developed by Drs. Roni Falcon, Stephanie Mario, Jasbir Pierre and colleagues, with an educational melissa from [employer]. Review of Systems Const Denies headache(s) Eyes Denies loss of vision ENT Denies vertigo, Denies dizziness, Denies headache(s) and Denies sore throat Card Denies chest pain, Denies leg edema and Denies lightheadedness Resp Denies cough, Denies hemoptysis and Denies wheezing GI Denies abdominal pain, Denies melena, Denies constipation, Denies diarrhea and Denies vomiting Denies urinary frequency, Denies dysuria and Denies urinary urgency Musc Denies arthralgias, Denies joint swelling, Denies numbness and Denies tingling Neuro Denies behavioral changes, Denies vertigo, Denies dizziness, Denies headache(s), Denies loss of vision, Denies memory loss, Denies numbness and Denies tingling Psych Denies anxiety, Denies behavioral changes, Denies depression, Denies memory loss and Denies panic attacks Richie/Lymph Denies easy bleeding and Denies easy bruising Aller/Immun Denies wheezing Physical exam (Primary Care) Tobacco/Smoking Status: Tobacco use Status Tobacco use date assessed 08/05/24 09/03/24 09:58 Patient Tobacco Use Status Never used Tobacco 09/03/24 09:58 Tobacco use type Cigarette 09/03/24 09:58 e-Cigarette/Vaping Use Never Used 09/03/24 09:58 Thrive Assessment: Date of Thrive Assessment Date Thrive assessed 08/05/24 09/03/24 09:58 Telehealth Telehealth Telehealth Platform: Telephone Location of provider rendering services: practice address Location of patient: address on file Patient Identification confirmed using: Name, : Yes Telehealth method: voice only Patient verbally consented to treatment: Yes Patient verbally consented to billing insurance company: Yes Patient informed of any privacy concerns related to visit: Yes Minutes spent on Phone/Video with Pt.: 11 Coding Level of Care Code Tele Est Pt Level 3 (46757) Diagnoses GRACIE (generalized anxiety disorder) F41.1 Assessment & Plan Assessment & Plan (1) GRACIE (generalized anxiety disorder): Code(s): F41.1 - Generalized anxiety disorder Category: Medical Plan: As per HPI patient did not start SSRI therapy for her anxiety. She did receive CBD gummies from a local marijuana dispensary which did help her anxiety as needed. Medications: Refilled atenolol 50 mg (2 x 25 mg) PO DAILY 180 tabs 1RF I10 - Essential (primary) hypertension simvastatin 20 mg PO BEDTIME 90 days 90 tabs 1RF E78.2 - Mixed hyperlipidemia amlodipine 2.5 mg PO DAILY 90 days 90 tabs 1RF I10 - Essential (primary) hypertension Discontinued sertraline Discontinued Reason: Doctor's Order 25 mg PO DAILY 30 days 30 tabs 1RF F41.1 - Generalized anxiety disorder
--- OUTSIDE RECORDS SUMMARY | 2024-09-03 10:50 | XMS_ITS | Clinical Summary ---
Author Organization [facility] Address [address] [place] [address] Care Team Providers Care Clerk Name Role Phone Unavailable Primary Care Provider [...]
--- OUTSIDE RECORDS SUMMARY | 2024-09-03 10:50 | XMS_ITS | Patient Health Record ---
Author Organization [facility] Address [address] [place] [address] Care Team Providers Care Deputy Sheriff Lieutenant Name Role Phone Haseeb Sanchez Primary Care Provider Unavailab Faisal Roa Unavailable [phone] Allergies Allergen (clinical drug ingredient) Drug/Non Drug [...] W/U Status Risk Notes Problem Atherosclerosis of [place] arteries of the extremities (533760335399180) Atherosclerosis of [place] artery of both lower extremities, with unspecified presence of clinical manifestation (I70.203) Active confirmed Vital Signs Blood pressure diastolic 78 mm Hg 06/13/2024 Height 5 ft 2 in in 06/13/2024 Blood pressure systolic 120 mm Hg 06/13/2024 Weight 142 lbs 06/13/2024 BMI 25.97 kg/m2 06/13/2024 Procedures Procedure Date Ordered Date Performed Result Body Sit e 26160-TTTUIKS NAIL, 6 OR MORE 01/01/2024 N/A 52375-BLVJ SKIN LESIONS, OVER 4 01/01/2024 N/A 74505-UOLZNZP NAIL, 6 OR MORE 06/13/2024 N/A 24502-CKRF SKIN LESIONS, OVER 4 06/13/2024 N/A Encounters Encounter Location Date Provider Diagnosis [address] [address] 01/01/2024 Faisal Carvajal Atherosclerosis of [place] artery of both lower extremities, with unspecified presence of clinical manifestation I70.203 ; Onychomycosis B35.1 ; Pain of toe of right foot M79.674 and Pain of toe of left foot M79.[address] [address] 06/13/2024 Faisal Carvajal Atherosclerosis of [place] artery of both lower extremities, with unspecified presence of clinical manifestation I70.203 ; Onychomycosis B35.1 ; Pain of toe of right foot M79.674 and Pain of toe of left foot M79.[address] [address] 10/19/2023 Faisal Carvajal [address] [address] 03/26/2024 Faisal Carvajal Assessments Encounter Date Diagnosis (ICD Code) Assessment Notes Treatment Notes Treatment Clinical Notes Section Notes 01/01/2024 Onychomycosis (ICD-10 - B35.1) 01/01/2024 Atherosclerosis of [place] artery of both lower extremities, with unspecified presence of clinical manifestation (ICD-10 - I70.203) 06/13/2024 Onychomycosis (ICD-10 - B35.1) 06/13/2024 Atherosclerosis of [place] artery of both lower extremities, with unspecified presence of clinical manifestation (ICD-10 - I70.203) 01/01/2024 Pain of toe of right foot (ICD-10 - M79.674) 06/13/2024 Pain of toe of right foot (ICD-10 - M79.674) 01/01/2024 Pain of toe of left foot (ICD-10 - M79.675) 06/13/2024 Pain of toe of left foot (ICD-10 - M79.675) Plan Of Treatment Pending Test Test Name Order Date 82625-QUOTFAC NAIL, 6 OR MORE 06/08/2020 26918-KUHVUMQ NAIL, 6 OR MORE 09/07/2020 22836-RLVPCLR NAIL, 6 OR MORE 12/07/2020 23639-QPYIBTV NAIL, 6 OR MORE 03/08/2021 59287-BCLVAOW NAIL, 6 OR MORE 06/07/2021 25749-MJUUFJR NAIL, 6 OR MORE 08/23/2021 96217-MJLFOXB NAIL, 6 OR MORE 01/10/2022 79891-KGITZDK NAIL, 6 OR MORE 05/09/2022 60258-CWUNFYD NAIL, 6 OR MORE 09/05/2022 98007-URQHOEJ NAIL, 6 OR MORE 01/02/2023 96525-OYXFLPM NAIL, 6 OR MORE 05/01/2023 24674-WUDYKWC NAIL, 6 OR MORE 07/31/2023 39928-HOBEHJP NAIL, 6 OR MORE 01/01/2024 14991-OGZCJIX NAIL, 6 OR MORE 06/13/2024 71761-Wyvfydfe Plate 09/05/2022 75000 I&D ABSCESS- SIMPLE,SINGLE 018 40376-YHSU SKIN LESIONS, OVER 4 05/01/19 24 90665-NQGP SKIN LESIONS, OVER 4 06/13/19 25 99181-PTAE SKIN LESIONS, OVER 4 01/01/20 24 41430-XQSH SKIN LESIONS, OVER 4 07/31/19 24 04230-RTUE SKIN LESIONS, 2 TO 4 01/03/20 23 61621-ZUIX SKIN LESIONS, 2 TO 4 09/06/19 23 97213-NPYL SKIN LESIONS, 2 TO 4 05/09/19 23 34298-SYCD SKIN LESIONS, 2 TO 4 01/11/20 22 54277-TMBX SKIN LESIONS, 2 TO 4 08/24/19 22 Next Appt Details Provider Name:Faisal Carvajal , 09/16/2024 10:00:00 AM, [address] [place], [address], Insurance Providers Payer Name Payer Address Payer Phone Subscriber Number Group Number Insured Name Patient Relationship to Insured Coverage Start Date Coverage End Date Medicare National [employer] [address] [place] [address] [id number] Yudith Espitia Self - patient is the insured [employer] Blue Shield [address] [place] [address] [id number] Yudith Espitia Self - patient is the insured Medical (General) History Medical History History ICD Code Chicken pox Measles Hypertension Cholesterol Heart disease vertigo Surgical History Surgery Date(Month/Year) gall bladder 1967 Hospitalization History Reason Date(Month/Year) [facility] [place] 07/2021
--- OUTSIDE RECORDS SUMMARY | 2024-09-03 10:50 | XMS_ITS ---
Author Organization [facility] Address [address] [place] [address] Care Team Providers Care Corporate Webmaster Name Role Phone Haseeb Sanchez Primary Care Provider Unavailab Faisal Roa Unavailable [phone] Encounters Encounter Location Date Provider Diagnosis [address] [address] 04/01/2024 Faisal Carvajal Plan Of Treatment Next Appt Details Provider Name:Faisal Carvajal , 09/16/2024 10:00:00 AM, [address] [place] [address], [address], Progress Notes * Jefe ARAUJOOB:1940 (84 yo F)Acc No.[id number]:04/01/2024 Progress Note Patient:?Yudith ARAUJO Provider:?Faisal Carvajal DPM :1940???Age:84 Y???Sex:Female D ate:04/01/2024 Address:[address] [place] [address] [facility] [id number] Pcp:Haseeb Sanchez Subjective: * Chief Complaints: * ??? * Medical History:? Objective: * Vitals:? Assessment: Plan: * Treatment: * Images: * The named appointment provid er may or may not be the originator of this progress note, and it is not deemed complete until electronically signed by the appointment provider. Sign off status: Pending * Provider:?Faisal Carvajal DPM Date:?2023 Generated for Magdy fam/Salazar/Sawyer on:?09/03/2024 10:50 AM EDT
--- OUTSIDE RECORDS SUMMARY | 2024-09-03 10:50 | XMS_ITS ---
Author Organization [facility] Address [address] [place] [address] Care Team Providers Care Machine Tool Technician Instructor Name Role Phone Haseeb Sanchez Primary Care Provider Unavailab Faisal Roa Unavailable [phone] REASON FOR VISIT rs from 04/01/24 Encounters Encounter Location Date Provider Diagnosis [address] [address] 03/26/2024 Faisal Carvajal Plan Of Treatment Next Appt Details Provider Name:Faisal Carvajal , 09/16/2024 10:00:00 AM, [address] [place], [address], Progress Notes * Jefe ARAUJOOB:1940 (84 yo F)Acc No.[id number]:03/26/2024 Patient:?Yudith ARAUJO :1940???Age:84 Y???Sex:Female Address:[address] [place] [address] [place], [address] * true * Date:? Generated for Printi ng/Faxing/eTransmitting on:?09/03/2024 10:50 AM EDT
--- OUTSIDE RECORDS SUMMARY | 2024-09-03 10:50 | XMS_ITS ---
Author Organization [facility] Address [address] [place] [address] Care Team Providers Care Case Managers Name Role Phone Haseeb Sanchez Primary Care Provider Unavailab Faisal Roa Unavailable [phone] Allergies Allergen (clinical drug ingredient) Drug/Non Drug [...] Ordered Date Performed Result Body Sit e 33825-QIKBQJV NAIL, 6 OR MORE 06/13/2024 N/A 95709-LVMW SKIN LESIONS, OVER 4 06/13/2024 N/A Encounters Encounter Location Date Provider Diagnosis [facility] [address] [address] 06/13/2024 Faisal Alena Atherosclerosis of [place] artery of both lower extremities, with unspecified presence of clinical manifestation I70.203 ; Onychomycosis B35.1 ; Pain of toe of right foot M79.674 and Pain of toe of left foot M79.675 Assessments Encounter Date Diagnosis (ICD Code) Assessment Notes Treatment Notes Treatment Clinical Notes Section Notes 06/13/2024 Atherosclerosis of [place] artery of both lower extremities, with unspecified presence of clinical manifestation (ICD-10 - I70.203) 06/13/2024 Onychomycosis (ICD-10 - B35.1) 06/13/2024 Pain of toe of right foot (ICD-10 - M79.674) 06/13/2024 Pain of toe of left foot (ICD-10 - M79.675) Plan Of Treatment Pending Test Test Name Order Date 34453-XUVYXOV NAIL, 6 OR MORE 06/13/2024 56457-IEWL SKIN LESIONS, OVER 4 06/13/19 25 Next Appt Details Follow Up: prn, Reason: Provider Name:Faisal Carvajal , 09/16/2024 10:00:00 AM, [address] [place] [address], [address], Procedure Notes * Category Sub-Category Detail Notes [...] use of a nail nipper and/or dremel-type grinder operator external tool, to a more viable healthy nail plate [...] to maintain effectiveness in symptomatic relief - 99670 Keratoma Treatment Parring or Cutting o f [...] instrumentation by the physician of record - 31694, Q8 Progress Notes * ARAUJOShabnam HUBBARDMargieOB:1940 (84 yo F)Acc No.[id number]:06/13/2024 Progress Note Patient:?Yudith ARAUJO Provider:?Faisal Carvajal DPM :1940???Age:84 Y???Sex:Female D ate:06/13/2024 Address:[address] [place] [address], [place] Pcp:Haseeb Sanchez Subjective: * Chief Complaints: * [...] bladd er 1967 * Hospitalization/Major Diagno stic Procedure:?[facility] PA-Vertigo 07/2021 * Family History:?Mother: dece [...] * Assessment: 1.?Onychomycosis - B35.1???2 .?Atherosclerosis of [place] artery of both lower extremities, with unspecified presence of clinical manifestation - I70.203 (Primary)???3.?Pain of toe of right foot - M79.674???4.?Pain of toe of left foot - M79.675??? Plan: * Treatment: 2.?Onychomycosis?Procedure: 23358-NLWBSOZ NAIL, 6 OR MORE * Procedures:?Debride Nail [...] use of a nail nipper and/or dremel-type grinder operator external tool, to a more viable healthy nail plate [...] to maintain effectiveness in symptomatic relief - 24290.?Keratoma Treatment:?Parring or Cutting of Benign Hyperkeratotic Lesion(s)?(-57) [...] instrumentation by the physician of record - 96138, Q8.? * Procedure Codes:?13758 DEBRI DE NAIL, 6 OR MORE, Modifiers: XS 47526 TRIM SKIN LESIONS, OVER 4, Modifiers: XS , Q8 * Follow Up:?prn * Images: * Sign off status: Completed true * Provider:?Faisal Carvajal DPM Date:?2024 Generated for Magdy fam/Salazar/Sawyer on:?09/03/2024 10:50 AM EDT History and Physical Notes * HPI (History of Present Illness) Category Sub-Category Detail Notes Category Not es At Risk footcare Pt States Last PCP Visit: Date: 4 [facility] States had to cx in Dec because [...]
== END 2024-09-03 11:55 | disposition home or self-care (01) ==
PROVIDERS: PCP Physician Assistant; Visit Provider Physician Assistant
DX: F41.1 Generalized anxiety disorder (principal)

== ENCOUNTER → 2024-09-03 09:52 | Outpatient (BNVA) | payer MEDICARE, SELFPAY | PROVIDERS: PCP Physician Assistant; Visit Provider Physician Assistant ==

== ENCOUNTER 2025-01-31 07:54 | Outpatient (REF) | payer MEDICARE, SELFPAY ==
--- OUTSIDE RECORDS SUMMARY | 2024-04-01 05:15 | XMS_ITS ---
Author Organization [facility] Address [address] [place] [address] Care Team Providers Care Real Estate Office Manager Name Role Phone Haseeb Sanchez Primary Care Provider Unavailab Faisal Roa Unavailable [phone] Encounters Encounter Location Date Provider Diagnosis [address] [id number] 04/01/2024 Faisal Carvajal Plan Of Treatment Next Appt Details Provider Name:Faisal Carvajal , 04/14/2025 10:30:00 AM, [address] [place] [address], [id number], Progress Notes * Jefe ARAUJOOB:1940 (84 yo F)Acc No.[id number]:04/01/2024 Progress Note Patient: Yudith ESQUEDA Provider: Arely Carvajal DPM :1940 A ge:84 Y S ex:Female Date:04/01/2024 Address:[address] [place] [address] [id number] Pcp:Haseeb Sanchez Subjective: * Chief Complaints: * * Medical History: Objective: * Vitals: Assessment: Plan: * Treatment: * Images: * The named appointment provid er may or may not be the originator of this progress note, and it is not deemed complete until electronically signed by the appointment provider. Sign off status: Pending * Provider: Arely Carvajal DPM Date: 1 06/02/2023 Generated for Magdy fam/Salazar/Sawyer on: 07:58 AM EDT
--- OUTSIDE RECORDS SUMMARY | 2025-01-31 07:58 | XMS_ITS | Patient Health Record ---
Author Organization [facility] Address [address] [facility] [place] [address] Care Team Providers Care Union Representative Name Role Phone Haseeb Sanchez Primary Care Provider Unavailab Faisal Roa Unavailable [phone] Allergies Allergen (clinical drug ingredient) Drug/Non Drug Allergy documented on EMR Reaction Allergy Type Onset Date Status sulfamethoxazole / trimethoprim Bactrim Unknown Drug Allergy Active Reason For Referral No Information Medications Medication SIG (Take, Route, Frequency, Duration) Notes Start Date End Date Status Atenolol 25 MG TAKE 2 TABLETS ONCE A DAY Oral; Duration: 90 Active Multivitamin Active Lisinopril 40 MG TAKE 1 TABLET BY NANCY TH ONCE A DAY Oral; Duration: 90 Active Simvastatin 20 MG TAKE 1 TABLET DAILY Oral; Duration: 90 Active Cephalexin 500 MG 1 tablet Orally Twic e a day; Duration: 10 day(s) Not-Taking Levothyroxine-Liothyronin e Active amLODIPine Besylate 2.5 MG TAKE 1 TABLET DAILY Oral; Duration: 90 Active Immunizations Vaccine Route Administration Date Status Comme nts Influenza Unknown 01/25/2022 Administered Influenza Unknown 01/29/2024 Administered COVID-19 Pfizer BioNTech Vaccine Unknown 01/25/2022 Administered 1st 06/08/2020,02/08/21 2nd 06/22/2020 Social History Tobacco Use: Social History Observation [...] (Standard) Question Answer Notes Tobacco use: Nonsmoker AUDIT-C (Standard) Question Answer Notes Did you have a drink containing alcohol in the p ast year? No Points 0 Interpretation Negative Problems Problem Type SNOMED Code ICD Code Onset Dates Problem Status W/U Status Risk Notes Problem Bilateral atherosclerosis of arteries of lower limbs (disorder) (38118689456713116 ) Atherosclerosis of [place] artery of both lower extremities, with unspecified presence of clinical manifestation (I70.203) Active confirmed Vital Signs Blood pressure diastolic 78 mm Hg 12/30/2024 Height 5 ft 2 in in 12/30/2024 Blood pressure systolic 121 mm Hg 12/30/2024 Weight 150 lbs 12/30/2024 BMI 27.43 kg/m2 12/30/2024 Procedures Procedure Date Ordered Date Performed Result Body Sit e 22930-MQONVPJ NAIL, 6 OR MORE 06/13/2024 N/A 20257-DYNS SKIN LESIONS, OVER 4 06/13/2024 N/A 78423-ZMLJPXM NAIL, 6 OR MORE 09/16/2024 N/A 36370-AILO SKIN LESIONS, OVER 4 09/16/2024 N/A 90927-APJNZXV NAIL, 6 OR MORE 12/30/2024 N/A 59340-TXVN SKIN LESIONS, OVER 4 12/30/2024 N/A Encounters Encounter Location Date Provider Diagnosis [address] [address] 06/13/2024 Faisal Carvajal Atherosclerosis of [place] artery of both lower extremities, with unspecified presence of clinical manifestation I70.203 ; Onychomycosis B35.1 ; Pain of toe of right foot M79.674 and Pain of toe of left foot M79.[address] [address] 09/16/2024 Faisal Carvajal Atherosclerosis of [place] artery of both lower extremities, with unspecified presence of clinical manifestation I70.203 ; Onychomycosis B35.1 ; Pain of toe of right foot M79.674 and Pain of toe of left foot M79.[address] [address] 12/30/2024 Faisal Carvajal Atherosclerosis of [place] artery of both lower extremities, with unspecified presence of clinical manifestation I70.203 ; Onychomycosis B35.1 ; Pain of toe of right foot M79.674 and Pain of toe of left foot M79.675 [facility] [address] [address] 03/26/2024 Faisal Alena Assessments Encounter Date Diagnosis (ICD Code) Assessment Notes Treatment Notes Treatment Clinical Notes Section Notes 06/13/2024 Onychomycosis (ICD-10 - B35.1) 06/13/2024 Atherosclerosis of [place] artery of both lower extremities, with unspecified presence of clinical manifestation (ICD-10 - I70.203) 09/16/2024 Onychomycosis (ICD-10 - B35.1) 09/16/2024 Atherosclerosis of [place] artery of both lower extremities, with unspecified presence of clinical manifestation (ICD-10 - I70.203) 12/30/2024 Onychomycosis (ICD-10 - B35.1) 12/30/2024 Atherosclerosis of [place] artery of both lower extremities, with unspecified presence of clinical manifestation (ICD-10 - I70.203) 09/16/2024 Pain of toe of right foot (ICD-10 - M79.674) 12/30/2024 Pain of toe of right foot (ICD-10 - M79.674) 06/13/2024 Pain of toe of right foot (ICD-10 - M79.674) 06/13/2024 Pain of toe of left foot (ICD-10 - M79.675) 12/30/2024 Pain of toe of left foot (ICD-10 - M79.675) 09/16/2024 Pain of toe of left foot (ICD-10 - M79.675) Plan Of Treatment Pending Test Test Name Order Date 27559-KKVNFPA NAIL, 6 OR MORE 06/08/2020 02927-OIYZXAT NAIL, 6 OR MORE 09/07/2020 11088-XMUJOMX NAIL, 6 OR MORE 12/07/2020 56293-ECGXLVJ NAIL, 6 OR MORE 03/08/2021 01758-VOUVBOK NAIL, 6 OR MORE 06/07/2021 95893-UAMCDUK NAIL, 6 OR MORE 08/23/2021 17745-QBKXVYG NAIL, 6 OR MORE 01/10/2022 88700-WLICBWK NAIL, 6 OR MORE 05/09/2022 68562-GHAQCYB NAIL, 6 OR MORE 09/05/2022 31611-IQJLMQI NAIL, 6 OR MORE 01/02/2023 88052-YRTAFUZ NAIL, 6 OR MORE 05/01/2023 67597-EYUVNPM NAIL, 6 OR MORE 07/31/2023 69122-DHOOBQW NAIL, 6 OR MORE 01/01/2024 77078-HZLSEBX NAIL, 6 OR MORE 06/13/2024 92254-ZVAJJDF NAIL, 6 OR MORE 09/16/2024 08148-JVELGSU NAIL, 6 OR MORE 12/30/2024 52026-Vhitapfh Plate 09/05/2022 92749 I&D ABSCESS- SIMPLE,SINGLE 018 26712-ZPAF SKIN LESIONS, OVER 4 05/01/19 24 26248-FIDC SKIN LESIONS, OVER 4 12/31/19 25 60510-DXKL SKIN LESIONS, OVER 4 09/17/19 25 85809-AKSD SKIN LESIONS, OVER 4 06/13/19 25 12669-UEHV SKIN LESIONS, OVER 4 01/01/20 24 04870-PWGL SKIN LESIONS, OVER 4 07/31/19 24 67811-IDEP SKIN LESIONS, 2 TO 4 01/03/20 23 66765-WJDM SKIN LESIONS, 2 TO 4 09/06/19 23 02359-ASUJ SKIN LESIONS, 2 TO 4 05/09/19 23 47518-ZVGJ SKIN LESIONS, 2 TO 4 01/11/20 22 91023-AAKZ SKIN LESIONS, 2 TO 4 08/24/19 22 Next Appt Details Provider Name:Faisal Carvajal , 04/14/2025 10:30:00 AM, [address] [facility], [place], [address], Insurance Providers Payer Name Payer Address Payer Phone Subscriber Number Group Number Insured Name Patient Relationship to Insured Coverage Start Date Coverage End Date Medicare National [facility] [address] [place] [address] [id number] Yudith Espitia Self - patient is the insured [employer] Blue Shield [address] [place] [address] [id number] Yudith Espitia Self - patient is the insured Medical (General) History Medical History History ICD Code Chicken pox Measles Hypertension Cholesterol Heart disease vertigo Surgical History Surgery Date(Month/Year) gall bladder 1967 Hospitalization History Reason Date(Month/Year) [facility] [place] [facility] PA-Vertigo 07/2021
--- OUTSIDE RECORDS SUMMARY | 2025-01-31 07:58 | XMS_ITS | Clinical Summary ---
Author Organization [facility] Address [address] [place] [address] Care Team Providers Care De Icer Finisher Name Role Phone Unavailable Primary Care Provider [...] 73 03/18/2020 9:48 AM EST Temperature 36.3 C (97.4 F) 03/18/2020 9:48 AM EST Respiratory Rate 16 03/18/2020 9:48 AM EST [...] 06/22/2015 Depression Screening 03/18/2021 03/18/2020, 01/18/20 18 DTap / Tdap / Td (2 - Td or Tdap) 05/31/2024 05/31/2014 Influenza Vaccine (#1) 2024 1, 02/09/2020, 01/17/2018, Additional history exists Shingrix-Zoster Vaccine Addressed 08/09/19 (Declined), 01/17/2018 (Declined) Overridden with the intention of not completing the topic Hepatitis B Vaccines Aged Out No long er eligible based on patient's age to complete this topic RSV Ped < 20 months Aged Out No longe r eligible based on patient's age to complete this topic
[2025-01-31 09:21] LABS: Hematocrit 36.8 % (37.0-47.0); Hemoglobin 11.9 g/dl (12.0-16.0); Mean Corpuscular HGB Conc 32.3 g/dl (31.0-35.0); Mean Corpuscular Hemoglobin 30.2 pg (27.0-33.0); Mean Corpuscular Volume 93.4 fL (80.0-98.0); NRBC Abs Auto 0.000 X10*3/uL (0.0-0.012); NRBC Pct Auto 0.0 /100WBC (0.0-0.2); Platelet Count 340 X10*3/uL (160-400); Red Blood Count 3.94 X10*6/uL (4.20-5.50); White Blood Count 10.6 X10*3/uL (4.8-10.8)
[2025-01-31 10:15] LABS: Alanine Aminotransferase 13 U/L (0-31); Albumin Level 4.5 g/dL (3.5-5.0); Alkaline Phosphatase 78 U/L (39-117); Anion Gap 14 (12-20); Aspartate Amino Transferase 25 U/L (5-31); Blood Urea Nitrogen 13 mg/dL (9-16); Calcium 10.0 mg/dL (8.4-10.2); Carbon Dioxide 25 mmol/L (22-29); Chloride 108 mmol/L (96-108); Cholesterol 131 mg/dL (<200); Estimated Glomerular Filt Rate > 60; HDL Cholesterol 38 mg/dL (>40); Potassium 3.9 mmol/L (3.3-5.1); Sodium 143 mmol/L (135-145); Total Protein 7.7 g/dL (6.5-8.0); Triglycerides 90 mg/dL (<150)
== END 2025-01-31 07:55 | disposition home or self-care (01) ==
LOC: HO.LAB 07:54
PROVIDERS: PCP Physician Assistant; Visit Provider Physician Assistant
DX: I10 Essential (primary) hypertension (principal); E03.9 Hypothyroidism, unspecified; E78.2 Mixed hyperlipidemia
CPT/HCPCS: 36415; 80053; 80061; 84443; 85027

== ENCOUNTER 2025-02-04 13:24 | Outpatient (AMB) | payer MEDICARE, SELFPAY ==
--- NOTE | 2025-02-04 13:28 | AM.OFFVISMDC ---
Intake Vital Signs 02/04/25 13:31 Height 5 ft 1 in Weight 149 lb 2 oz BMI 28.2 BP 140/80 H Blood Pressure Location Rt brachial Position Sitting Pulse 71 Pulse Source Pulse Oximeter Temp 97.3 F Temp Source Temporal Artery Scan Pulse Oximetry (%) 98 Oxygen Delivery Method Room Air Intake Visit Reasons: SWV G0439 Intake Note: Patient is here for an Annual Wellness Visit. Medical Accounts Receivable Specialist Required: No Curer Foam Rubber: Curer Foam Rubber offered & declined Accompanied by: Self / Same As Patient Allergies sulfacetamide Allergy (Mild, Verified 02/04/25 13:39) Hives meclizine Adverse Reaction (Intermediate, Verified 02/04/25 13:39) Dizziness Sulfacetamide Sod-Pred Allergy (Intermediate, Uncoded 02/04/25 13:39) Unknown Medication List - Last Reconciled 02/04/25 by Haseeb Sanchez PA-C amlodipine 2.5 mg PO DAILY 90 days atenolol 50 mg (2 x 25 mg) PO DAILY levothyroxine 25 mcg PO DAILY 90 days lisinopril 40 mg PO DAILY 90 days ax-mubcrjy-zjo-iron fm-FA-vitK 18 mg-400 mcg- 25 mcg (One-A-Day Women's Complete(with vit K)) 1 tab PO DAILY simvastatin 20 mg PO BEDTIME 90 days HPI SWV G0439 HPI Details Patient is an 84 -year-old female? here today for an annual wellness visit.. Patient has a past medical history significant for hyperlipidemia, hypothyroidism, anxiety hypertension.? Concern--> Yudith is presenting with hip pain, suspected to be greater trochanteric bursitis. The hip pain began about a month ago, initially thought to be sciatica, with pain radiating from the buttock down the leg. The pain is primarily on the outside of the hip, worsening at night and affecting sleep. Today we discussed her pala of care and end of life planning. MOLST has been filled out. We also discuss patient's comprehensive care plan which was placed in the patient's documents Colonoscopy-aged out Mammogram- does not receive anymore Osteopenia: Bone density done in 2016 showing T-score of -2.1- considering a repeat Vaccines: Up-to-date with COVID, flu , pneumonia and shingles. HPI Comments History of Present Illness Details reviewed past medical history- yes reviewed surgical / hospitalization history- yes reviewed current medications- yes reviewed family history- yes home safety throw rugs? grab bars? raised toilet seat? working smoke detectors? activities of daily living difficulty bathing or showering? difficulty dressing? difficulty using the toilet? difficulty getting in and out of bed? difficulty walking? receives help from other person's with any of the above tasks? instrumental activities of daily living uses telephone - gets to place out of walking distance- go shopping for groceries- repairs own meals- does own minor home maintenance- does own laundry- does own housework- manages own money- currently takes medication- end of life planning discussed advanced directives- yes advanced directives on file? discussed wishes expressed in advanced directives. fall risk have you had any falls with injuries in the past year? have you had 2 or more falls in the past year? fall risk assessment: [facility] Surgical History History of right cataract surgery History of left cataract surgery History of cholecystectomy Family History Mother No problems noted. Father No problems noted. Social History Housing: House Alcohol intake: current Alcohol intake frequency: a few times a week Patient Tobacco Use Status: Never used Tobacco Tobacco use type: Cigarette e-Cigarette/Vaping Use: Never Used Second Hand Smoke Exposure: No service: No Current occupational status: retired Cognitive needs: No Hearing needs: No Vision needs: No Questionnaire Medicare Wellness Checkup What is your age?: 80 or older What gender do you identify with?: female During the past 4 weeks, how much have you been bothered by emotional problems such as feeling anxious, depressed, irritable, sad or downhearted, and blue?: not at all During the past 4 weeks, has your physical & emotional health limited your social activities with family, friends, neighbors, or groups?: not at all During the past 4 weeks, how much bodily pain have you generally had?: no pain During the past 4 weeks, was someone available to help you if you needed & wanted help?: yes, as much as I wanted During the past 4 weeks, what was the hardest physical activity you could do for at least 2 minutes?: heavy Can you get to places out of walking distance without help? (For eg., can you travel alone on buses, taxis or drive your car?): Yes Can you go shopping for groceries or clothes without someone's help?: Yes Can you prepare your own meals?: Yes Can you do your housework without help?: Yes Because of any health problems, do you need the help of another person with your personal care needs such as eating, bathing, dressing or getting around the house?: No Can you handle your own money without help?: Yes During the past 4 weeks, how would you rate your health in general?: very good During the past 4 weeks how have things been going for you?: very well; could hardly better Are you having difficulties driving your car?: no Do you always fasten your seat belt when you are in a car?: yes, usually During past 4 weeks, have you been bothered by the following: never: Sexual problems?, Trouble eating well?, Teeth or denture problems? and Problems using the telephone? and seldom: Falling or dizzy when standing up and Tiredness or fatigue? Have you fallen 2 or more times in the past year?: No Are you afraid of falling?: No Are you a smoker?: no During the past 4 weeks, how many drinks of wine, beer, or other alcoholic beverages did you have?: 2-5 drinks per week Do you exercise for about 20 minutes 3 or more times a week?: yes, some of the time Have you been given information to help with the following?: yes: Keeping track of your medications? and no: Hazards in your house that might hurt you? How often do you have trouble taking medicines the way you have been told to take them?: I do not have to take medicine How confident are you that you can control & manage most of your health problems?: very confident What is your race?: White Mini Mental State Exam (MMSE) Orientation What is the (year) (season) (date) (day) (month)?: year Where are we (state) (county) (town or city) (hospital) (floor)?: town or city Attention & Calculation (CHOOSE ONE) Spell WORLD backwards (DLROW): 5 letters Score Score: 7 Activity of Daily Living Bathing - sponge bath, tub bath or shower: receives no assistance (gets in/out by self, if usual bathing means Dressing - getting clothes from closets & drawers, including inner/outer garments & fasteners.: gets clothes & gets completely dressed without help Toileting - going to the 'toilet room' for urine/bowel elimination & cleaning self/arranging clothes: goes to toilet room, cleans self, arranges clothes without help Transfer: moves in & out of bed and chair without help (may use support object) Continence: controls urination/bowel movements completely by self Feeding: feeds self without help Total Score: 0 Information obtained from: patient Using telephone: independent Traveling: independent Shopping: independent Preparing meals: independent Housework: independent Taking medicine: independent Managing money: independent PHQ-9 Over the last 2 weeks, how often have you been bothered by any of the following problems? 1. Little interest or pleasure in doing things: not at all 2. Feeling down, depressed, or hopeless: not at all 3. Trouble falling or staying asleep, or sleeping too much: not at all 4. Feeling tired or having little energy: not at all 5. Poor appetite or overeating: not at all 6. Feeling bad about yourself - or that you are a failure or have let yourself or your family down: not at all 7. Trouble concentrating on things, such as reading the newspaper or watching television: not at all 8. Moving or speaking so slowly that other people could have noticed. Or the opposite - being so fidgety or restless that you have been moving around a lot more than usual: not at all 9. Thoughts that you would be better off or of hurting yourself in some way: not at all Total score: 0 Depression Screening Interpretation: Negative Depression Screening Done: Yes Source: Developed by Drs. Roni Falcon, Stephanie Mario, Jasbir Pierre and colleagues, with an educational melissa from [employer]. Thrive Questionnaire Date Thrive assessed: 08/05/24 GRACIE-7 AMB Questionnaire GRACIE-7 Date GRACIE - 7 assessed: 08/05/24 Source: Developed by Drs. Roni Falcon, Jasbir Gutierrez and colleagues, with an educational melissa from [employer]. Physical Exam Vital Signs: Last Vital Signs Temp 97.3 F 02/04/25 13:31 Pulse 71 02/04/25 13:31 BP 140/80 H 02/04/25 13:31 Pulse Ox 98 02/04/25 13:31 Oxygen Delivery Method Room Air 02/04/25 13:31 BMI result Body Mass Index 28.2 HEENT Other: hearing screening whisper test- passed Eyes Other: vision screening- 2019 OS OD OU Other: urinary incontinence? no Neuro Other: balance Romberg- normal tandem walk test- able walk-in turned test-able rise from sit to stand- within 2 seconds Assessment & Plan Assessment & Plan (1) Annual wellness visit: Code(s): Z00.00 - Encounter for general adult medical examination without abnormal findings Plan: As per HPI (2) Greater trochanteric bursitis of right hip: Code(s): M70.61 - Trochanteric bursitis, right hip Plan: The management plan involves prescribing an anti-inflammatory medication to alleviate the hip pain attributed to greater trochanteric bursitis. Referral to physical therapy is advised to help manage the bursitis, with a suggestion to see a familiar therapist for continuity of care. Orders: Orders TSH reflex Free T4 Today E03.9 - Hypothyroidism, unspecified Comprehensive [place]. Panel Fast Today I10 - Essential (primary) hypertension PT Evaluation and Treatment Today M70.61 - Trochanteric bursitis, right hip Microalbumin, Random (w Creat) Today I10 - Essential (primary) hypertension Complete Blood Count no Diff Today I10 - Essential (primary) hypertension XR DEXA axial skeleton Today M85.80 - Other specified disorders of bone density and structure, unspecified site, Z78.0 - Asymptomatic menopausal state Medications: New naproxen 500 mg PO BID PRN 20 tabs 0RF pain 10 days M70.61 - Trochanteric bursitis, right hip prednisone take 3 tabs x3 days, 2 tablets x3 days, 1 tablet x3 days 10 mg PO DIRECTED 18 tabs 0RF 9 days M70.61 - Trochanteric bursitis, right hip Quality Reporting (2019) Depression/Bipolar (159/160/161/177) PHQ-9: Total score: 0 Coding Level of Care Code Medicare Subsequent (G0439) Est Pt Level 3 (29323) Diagnoses Annual wellness visit Z00.00 Greater trochanteric bursitis of right hip M70.61 CPT Codes Advance Care Planning - Advance Care Planning discussion: On file, no changes ([id number]) Advance Care Planning - Time spent: 1-15 minutes, on File ([id number]) Advance Care Planning Advance Care Planning discussion: On file, no changes Date of discussion: 02/04/25 Forms completed: MOLST Time spent: 1-15 minutes, on File
[2025-02-04 13:31] VITALS: BP 140/80; PULSE 71; TEMP 36.3; O2SAT 98; BMI 28.2
== END 2025-02-04 14:16 | disposition home or self-care (01) ==
LOC: HO.HMCH 13:25
PROVIDERS: PCP Physician Assistant; Visit Provider Physician Assistant
DX: Z00.00 Encounter for general adult medical examination without abnormal findings (principal); M70.61 Trochanteric bursitis, right hip

== ENCOUNTER → 2025-02-04 13:24 | Outpatient (BNVA) | payer MEDICARE, SELFPAY | PROVIDERS: PCP Physician Assistant; Visit Provider Physician Assistant | DX: Z00.00 Encounter for general adult medical examination without abnormal findings (principal); M70.61 Trochanteric bursitis, right hip; E03.9 Hypothyroidism, unspecified; I10 Essential (primary) hypertension; M85.80 Other specified disorders of bone density and structure, unspecified site; Z78.0 Asymptomatic menopausal state | CPT/HCPCS: 96127; 99212 ==